=== PATIENT | female | born 1940 | race Caucasian/White ===

== ENCOUNTER 2018-12-18 16:27 | Inpatient (IN) | payer OTHER ==
[2018-12-17 19:40] VITALS: BP 141/70
[~2018-12-18] VITALS: Ht 162.6 cm; Wt 88.6 kg
--- NOTE | 2018-12-18 16:59 | PHYS DOC ---
Past History Past Medical History: COPD, Dementia Past Surgical History: No Surgical History Alcohol Use: None Drug Use: None Adult General Chief Complaint Chief Complaint: SHORTNESS OF BREATH [facility] HPI 78-year-old female presents from Dr. Evans's office with shortness of breath, UTI and concern for sepsis. The patient normally has a room air oxygen saturation of 90 or 91. She should be on 2 L of oxygen, but has not been for a long time. Today the patient had oxygen saturations in the 80s as low as 86. She went to Dr. Evans's office and was also found to be tachycardic. The patient was diagnosed 2 days ago with UTI and placed on Macrobid. She's had a total of 3 doses. With this, patient symptoms, he advised she come to the emergency room. On arrival, the patient was requiring 3 L of oxygen to maintain a saturation of 92%. She denies abdominal pain. She has general fatigue with her shortness of breath. She denies cough. She had a low-grade fever at home. Review of Systems Review of Systems Constitutional: Denies fever or chills [] Eyes: Denies change in visual acuity, redness, or eye pain [] HENT: Denies nasal congestion or sore throat [] Respiratory: shortness of breath [] Cardiovascular: No additional information not addressed in HPI [] GI: Denies abdominal pain, nausea, vomiting, bloody stools or diarrhea [] : Recent UTI diagnosis[] Musculoskeletal: Denies back pain or joint pain [] Integument: Denies rash or skin lesions [] Neurologic: Denies headache, focal weakness or sensory changes [] Endocrine: Denies polyuria or polydipsia [] All other systems were reviewed and found to be within normal limits, except as documented in this note. Allergies Allergies Allergies Coded Allergies Type Severity Reaction Last Updated Verified Penicillins Allergy Unknown 12/18/18 Yes Sulfa (Sulfonamide Antibiotics) Allergy Unknown 12/18/18 Yes bacitracin Allergy Unknown 12/18/18 Yes ciprofloxacin Allergy Unknown 12/18/18 Yes Physical Exam Physical Exam Constitutional: Well developed, well nourished, no acute distress, non-toxic appearance. [] HENT: Normocephalic, atraumatic, bilateral external ears normal, oropharynx moist, no oral exudates, nose normal. [] Eyes: PERRLA, EOMI, conjunctiva normal, no discharge. [] Neck: Normal range of motion, no tenderness, supple, no stridor. [] Cardiovascular:Heart rate regular rhythm, no murmur [] Lungs & Thorax: Bilateral breath sounds decreased but clear to auscultation [] Abdomen: Bowel sounds normal, soft, no tenderness, no masses, no pulsatile masses. [] Skin: Warm, dry, no erythema, no rash. [] Back: No tenderness, no CVA tenderness. [] Extremities: No tenderness, no cyanosis, no clubbing, ROM intact, no edema. [] Neurologic: Alert and oriented X 3, normal motor function, normal sensory function, no focal deficits noted. [] Psychologic: Affect normal, judgement normal, mood normal. [] Current Patient Data Vital Signs Vital Signs Date Time Temp Pulse Resp B/P (MAP) Pulse Ox O2 Delivery O2 Flow Rate FiO2 12/18/18 16:42 99.4 103 24 87 Room Air EKG EKG [] Radiology/Procedures Radiology/Procedures [] Impressions: CHEST PA LATERAL Clinical indications: Shortness of breath. COMPARISON: None available. Findings: Hyperinflation is seen consistent with COPD. Mild interstitial lung disease is seen and may be acute or chronic in nature. No lung consolidation or lung mass or pleural effusion or pneumothorax is evident otherwise. The heart size is at the upper limits of normal. The mediastinum and pulmonary vasculature and both josie are unremarkable. IMPRESSION: COPD. Mild interstitial lung disease may be acute or chronic in nature. No consolidative pneumonia is evident. Electronically signed by: Abdoulaye Jorgensen MD (12/18/2018 5:07 PM) [place] [id number] DICTATED AND SIGNED BY: ABDOULAYE JORGENSEN MD DATE: 12/18/18 [id number] CC: KAYLIE MORENO DO ~ Course & Med Decision Making Course & Med Decision Making Pertinent Labs and Imaging studies reviewed. (See chart for details) The patient's initial presentation has her oxygen saturation below 90%, heart rate of 102, not hypotensive. The patient has a known source of infection. The she meets sepsis criteria. We will give her 30 mL/kg of fluids as well as Rocephin. Labs are pending. Sepsis reassessment: The patient's fluids have improved her heart rate to below 100, her blood pressure is normal, her O2 is 95% on 3 L. I spoke with Dr. Evans and he has agreed to admit the patient to this facility. 31 minutes of critical care time was spent on this patient exclusive of other billable procedures. [] Dragon Disclaimer Dragon Disclaimer This electronic medical record was generated, in whole or in part, using a voice recognition dictation system. Date and Time of Assessment Date: Dec 18, 2018 Time: 16:30 Vital Signs Vital Signs Vital Signs Date Time Temp Pulse Resp B/P (MAP) Pulse Ox O2 Delivery O2 Flow Rate FiO2 12/18/18 16:42 99.4 103 24 87 Room Air Respirations Respiratory Effort: Shortness of air Respiratory Pattern: Normal Cardiovascular Pulse Rhythm: Regular HEART: No murmurs noted Lung Sounds Breath Sounds: Diminished Capillary Refill Capillary Refill: Rt Hand < 3 seconds Peripheral Pulse Pulse Location: Monitor Pulse Strength: Normal (2+) Pulse Assessment Method: Monitor Integumentary Skin: Warm Skin Moisture: Dry Skin Turgor: Normal Skin Color: warm Fingernail Color: KAYLIE GARCIA DO Dec 18, 2018 16:59
[2018-12-18] MEDS ORDERED: cefTRIAXone SODIUM 1 GM VIAL ONE (17:04)
[2018-12-18] MEDS ORDERED: IV NORMAL SALINE 50ML 50 ML ONE (17:04)
--- NOTE | 2018-12-18 17:11 | RAD ---
CHEST PA LATERAL Clinical indications: Shortness of breath. COMPARISON: None available. Findings: Hyperinflation is seen consistent with COPD. Mild interstitial lung disease is seen and may be acute or chronic in nature. No lung consolidation or lung mass or pleural effusion or pneumothorax is evident otherwise. The heart size is at the upper limits of normal. The mediastinum and pulmonary vasculature and both josie are unremarkable. IMPRESSION: COPD. Mild interstitial lung disease may be acute or chronic in nature. No consolidative pneumonia is evident. Electronically signed by: Myles Jorgensen MD (12/18/2018 5:07 PM) [place] [id number]
[2018-12-18] MEDS: NORMAL SALINE IV SCH ×4 (17:19→21:17)
[2018-12-18 17:55] LABS: BASO # 0.2 x10^3/uL (0.0-0.2); BASO % 1 % (0-3); EOS % 0 % (0-3); HEMATOCRIT 41.2 % (36.0-47.0); HEMOGLOBIN 13.5 g/dL (12.0-15.5); LYMPH # 1.6 x10^3/uL (1.0-4.8); LYMPH % 9 % (24-48); MEAN CORPUSCULAR HEMOGLOBIN 30 pg (25-35); MEAN CORPUSCULAR HGB CONC 33 g/dL (31-37); MEAN CORPUSCULAR VOLUME 91 fL (79-100); MONO # 1.2 x10^3/uL (0.0-1.1); MONO % 7 % (0-9); NEUT # 15.4 x10^3uL (1.8-7.7); NEUT % 84 % (31-73); PLATELET COUNT 279 x10^3/uL (140-400); RED BLOOD COUNT 4.55 x10^6/uL (3.50-5.40); RED CELL DISTRIBUTION WIDTH 13.7 % (11.5-14.5); WHITE BLOOD COUNT 18.3 x10^3/uL (4.0-11.0)
[2018-12-18 18:06] LABS: ALBUMIN 3.6 g/dL (3.4-5.0); CALCIUM 8.9 mg/dL (8.5-10.1); GFR 53.9; POTASSIUM 3.8 mmol/L (3.5-5.1); TOTAL BILIRUBIN 0.8 mg/dL (0.2-1.0); TOTAL PROTEIN 7.1 g/dL (6.4-8.2)
[2018-12-18] MEDS ORDERED: KETOROLAC 15 MG/ML VIAL. IV ONE (18:15)
[2018-12-18 18:54] LABS: BILIRUBIN,URINE SMALL (NEG); CLARITY,URINE HAZY; COLOR,URINE AMBER; GLUCOSE,URINE NEG (NEG); NITRITE,URINE NEG (NEG); UROBILINOGEN,URINE 0.2 mg/dL (0.2 mg/dL)
[2018-12-18 18:55] LABS: BACTERIA,URINE FEW /HPF (0-FEW); RBC,URINE OCC /HPF (0-2); SQUAMOUS EPITHELIAL CELL,UR MOD /LPF
[2018-12-18 19:00] VITALS: BP 141/70
[2018-12-18 19:20] LABS: % BANDS 2 % (0-9); % EOS 1 % (0-5); % LYMPHS 9 % (24-48); % MONOS 7 % (0-10); % SEGS 81 % (35-66); PLT ESTIMATE ADEQUATE (ADEQUATE)
[2018-12-18 19:21] LABS: ANISOCYTOSIS SLIGHT
[2018-12-18] MEDS ORDERED: IPRATRPIUM/ALBUTEROL 0.5/2.5MG 3 ML NEBU. NEB SCH (20:00)
[2018-12-18] MEDS ORDERED: QUET100T4 PO (20:44)
[2018-12-18] MEDS ORDERED: OMEG100021 PO (20:44)
[2018-12-18] MEDS ORDERED: MULT1TAB52 PO (20:44)
[2018-12-18] MEDS ORDERED: LAMO200T2 PO (20:44)
[2018-12-18] MEDS ORDERED: BISA5TAB4 PO (20:44)
[2018-12-18] MEDS ORDERED: BISACODYL TAB 5 MG TABLET.DR. PO PRN (21:15)
[2018-12-18] MEDS ORDERED: ASPI-630 PO (21:51)
[2018-12-18] MEDS ORDERED: LISI40TA PO (21:51)
[2018-12-18] MEDS ORDERED: FURO20TA3 PO (21:51)
[2018-12-18] MEDS ORDERED: FLUT1DIS IH (21:51)
[2018-12-18] MEDS ORDERED: LORA0.5T PO (21:51)
[2018-12-18] MEDS ORDERED: TRAM50TA PO (21:51)
[2018-12-18] MEDS ORDERED: IPRA4AER INH (21:51)
[2018-12-18] MEDS ORDERED: B CO1CAP6 PO (21:51)
[2018-12-18] MEDS ORDERED: DESV100T PO (21:51)
[2018-12-18] MEDS ORDERED: BENZ-8 PO (21:51)
[2018-12-18] MEDS ORDERED: CYCL5TAB PO (21:51)
[2018-12-18] MEDS ORDERED: CYCLOBENZAPRINE 10 MG TABLET. PO PRN (22:15)
[2018-12-18] MEDS ORDERED: LORazepam 0.5 MG TABLET PO PRN (22:30)
[2018-12-18] MEDS: OMEGA-3 FATTY ACIDS/FISH OIL 1,000 MG CAPSULE. PO SCH (22:56)
[2018-12-18] MEDS: QUEtiapine 100 MG TABLET. PO SCH (23:00)
[2018-12-18] MEDS: traMADol 50 MG TABLET PO PRN (23:00)
[2018-12-18] MEDS: MULTIVITAMIN with MINERAL TABLET. PO SCH (23:00)
[2018-12-18] MEDS: IV NORMAL SALINE 1,000ML 1,000 ML IV SCH (23:01)
[2018-12-18] MEDS: lamoTRIgine 100 MG TABLET. PO SCH (23:01)
[2018-12-19] MEDS: KETOROLAC 30 MG/ML VIAL. IV PRN ×3 (00:20→20:57)
[2018-12-19] MEDS: BUDESONIDE 0.5 MG/2 ML NEBU NEB SCH ×2 (05:43→20:50)
[2018-12-19] MEDS: IPRATRPIUM/ALBUTEROL 0.5/2.5MG 3 ML NEBU. NEB SCH ×4 (05:43→20:50)
[2018-12-19 06:15] VITALS: BP 125/68
[2018-12-19] MEDS: ASPIRIN 81 MG TAB.CHEW PO SCH (08:51)
[2018-12-19] MEDS: VITAMIN B COMPLEX CAPSULE. PO SCH (08:51)
[2018-12-19] MEDS: OMEGA-3 FATTY ACIDS/FISH OIL 1,000 MG CAPSULE. PO SCH ×2 (08:52→20:56)
[2018-12-19] MEDS: FUROSEMIDE 20 MG TABLET PO SCH (08:52)
[2018-12-19] MEDS: DESVENLAFAXINE 100 MG PO SCH (08:52)
[2018-12-19] MEDS: LISINOPRIL 20 MG TABLET PO SCH (08:53)
[2018-12-19] MEDS ORDERED: NON FORMULARY ITEM (Ipratropium/Albuterol Sulfate (Combivent Respimat Inhal) 1 PUFF) INH SCH (09:00)
[2018-12-19] MEDS ORDERED: BENZONATATE 100 MG CAPSULE. PO PRN (09:00)
[2018-12-19] MEDS ORDERED: NON FORMULARY ITEM (Fluticasone/Salmeterol (Advair 100-50 Diskus) 1 EACH) IH SCH (09:00)
[2018-12-19 11:10] VITALS: BP 133/59
[2018-12-19 11:11] LABS: BASO # 0.1 x10^3/uL (0.0-0.2); BASO % 1 % (0-3); EOS # 0.1 x10^3/uL (0.0-0.7); EOS % 1 % (0-3); HEMATOCRIT 35.5 % (36.0-47.0); HEMOGLOBIN 11.7 g/dL (12.0-15.5); LYMPH # 2.5 x10^3/uL (1.0-4.8); LYMPH % 17 % (24-48); MEAN CORPUSCULAR HEMOGLOBIN 30 pg (25-35); MEAN CORPUSCULAR HGB CONC 33 g/dL (31-37); MEAN CORPUSCULAR VOLUME 90 fL (79-100); MONO # 1.1 x10^3/uL (0.0-1.1); MONO % 8 % (0-9); NEUT # 10.9 x10^3uL (1.8-7.7); NEUT % 74 % (31-73); PLATELET COUNT 222 x10^3/uL (140-400); RED BLOOD COUNT 3.93 x10^6/uL (3.50-5.40); RED CELL DISTRIBUTION WIDTH 13.5 % (11.5-14.5); WHITE BLOOD COUNT 14.7 x10^3/uL (4.0-11.0)
[2018-12-19 11:13] LABS: CALCIUM 7.7 mg/dL (8.5-10.1); CREATININE 0.9 mg/dL (0.6-1.0); GFR 60.9; POTASSIUM 3.6 mmol/L (3.5-5.1)
[2018-12-19] MEDS ORDERED: IOHEXOL 350 MG/ML 100 ML VIAL. IV ONE (15:00)
[2018-12-19 15:30] VITALS: BP 134/64
--- NOTE | 2018-12-19 15:55 | RAD ---
CTA Chest with contrast: Clinical History: Dyspnea and elevated d-dimer and fatigue and low-grade fever. Axial helical images of the chest were obtained after the administration of 100 cc of IV Isovue-370 and timed appropriately for a pulmonary arterial study. Conventional axial reconstruction was performed in addition to coronal, sagittal and bilateral oblique MIP (maximum intensity projection). This study was ordered to detect possible pulmonary embolism. There are no filling defects to suggest pulmonary embolism. There is patchy opacities in the lung bases posteriorly. There is vague patchy opacity in the right upper lobe posterior laterally and there is diffuse emphysematous changes. There is consultation the wall of the thoracic aorta without dissection. The ascending thoracic aorta is mildly dilated to 4.1 cm. There is coronary artery calcifications. There is no lymphadenopathy. Impression: 1. No evidence of pulmonary embolism. 2. Bilateral infiltrates could be atypical pneumonia. 3. Atherosclerotic disease with mildly dilated ascending thoracic aorta. RS Compliance Statement: One or more of the following individualized dose reduction techniques were utilized for this examination: 1. Automated exposure control 2. Adjustment of the mA and/or kV according to patient size 3. Use of iterative reconstruction technique Electronically signed by: Demond Gonzalez III, MD (12/19/2018 3:52 PM) [facility] [place]
[2018-12-19] MEDS: traMADol 50 MG TABLET PO PRN (19:22)
[2018-12-19 19:30] VITALS: BP 133/73
[2018-12-19] MEDS: MULTIVITAMIN with MINERAL TABLET. PO SCH (20:56)
[2018-12-19] MEDS: lamoTRIgine 100 MG TABLET. PO SCH (20:56)
[2018-12-19] MEDS: LACTOBACILLUS RHAMNOSUS GG 1 CAPSULE. PO SCH (20:56)
[2018-12-19] MEDS: QUEtiapine 100 MG TABLET. PO SCH (20:56)
[2018-12-19] MEDS: IV NORMAL SALINE 1,000ML 1,000 ML IV SCH ×2 (20:58→22:03)
[2018-12-19 22:39] VITALS: BP 112/53
--- NOTE | 2018-12-20 03:15 | PN ---
DATE: 12/19/2018 SUBJECTIVE: A 78-year-old female in with shortness of breath as well as possible sepsis. The patient's white count has been as high as 18,000 and the patient, although had a negative lactic acid she did have an elevated pulse rate. The patient otherwise seems to be breathing a little bit easier this morning. She was basically hypoxic yesterday and has some chronic lung disease as well as depression and dementia. Otherwise, the patient says she is feeling a little better. OBJECTIVE: VITAL SIGNS: Blood pressure 130/60, respiratory rate ____, pulse 96, afebrile. HEENT: The patient's head was atraumatic, normocephalic. Eyes: PERRLA without jaundice. Mouth and throat were normal. NECK: Supple, no JVD or thyromegaly. LUNGS: Diminished throughout, poor movement of air, but clear. CARDIOVASCULAR: Regular sinus rhythm. Blood pressure 140/70, respiration 18, pulse 98. Initial temperature was 102.9, but has come down to 98.3, so we will go ahead and continue to monitor the patient accordingly and make further evaluation. IMPRESSION: Sepsis, acute respiratory distress, sinus tachycardia, hypoxia. PLAN: As above. Continue with aggressive pulmonary toilet. Make further evaluation on her as indicated. MAYTE SILVERMAN MD DR: BECKA/brijesh JOB#: [id number] / [id number]
[2018-12-20] MEDS: IPRATRPIUM/ALBUTEROL 0.5/2.5MG 3 ML NEBU. NEB SCH ×4 (05:03→20:19)
[2018-12-20 05:47] VITALS: BP 134/66
[2018-12-20 07:03] LABS: BASO # 0.1 x10^3/uL (0.0-0.2); BASO % 1 % (0-3); EOS # 0.3 x10^3/uL (0.0-0.7); EOS % 3 % (0-3); HEMOGLOBIN 11.5 g/dL (12.0-15.5); LYMPH # 2.2 x10^3/uL (1.0-4.8); LYMPH % 19 % (24-48); MEAN CORPUSCULAR HEMOGLOBIN 30 pg (25-35); MEAN CORPUSCULAR HGB CONC 33 g/dL (31-37); MEAN CORPUSCULAR VOLUME 92 fL (79-100); MONO # 1.1 x10^3/uL (0.0-1.1); MONO % 9 % (0-9); NEUT # 8.3 x10^3uL (1.8-7.7); NEUT % 69 % (31-73); PLATELET COUNT 221 x10^3/uL (140-400); RED BLOOD COUNT 3.82 x10^6/uL (3.50-5.40); RED CELL DISTRIBUTION WIDTH 13.6 % (11.5-14.5); WHITE BLOOD COUNT 11.9 x10^3/uL (4.0-11.0)
[2018-12-20 07:06] LABS: CALCIUM 7.7 mg/dL (8.5-10.1); CREATININE 0.8 mg/dL (0.6-1.0); GFR 69.7; POTASSIUM 3.6 mmol/L (3.5-5.1)
[2018-12-20] MEDS: ASPIRIN 81 MG TAB.CHEW PO SCH (07:43)
[2018-12-20] MEDS: VITAMIN B COMPLEX CAPSULE. PO SCH (08:36)
[2018-12-20] MEDS: OMEGA-3 FATTY ACIDS/FISH OIL 1,000 MG CAPSULE. PO SCH ×2 (08:36→21:10)
[2018-12-20] MEDS: FUROSEMIDE 20 MG TABLET PO SCH (08:36)
[2018-12-20] MEDS: LACTOBACILLUS RHAMNOSUS GG 1 CAPSULE. PO SCH ×2 (08:36→21:09)
[2018-12-20] MEDS: DESVENLAFAXINE 100 MG PO SCH (08:37)
[2018-12-20] MEDS: LISINOPRIL 20 MG TABLET PO SCH (08:37)
[2018-12-20] MEDS: BUDESONIDE 0.5 MG/2 ML NEBU NEB SCH ×2 (09:35→20:19)
[2018-12-20] MEDS: IV NORMAL SALINE 1,000ML 1,000 ML IV SCH ×2 (11:01→22:53)
[2018-12-20 11:55] VITALS: BP 140/67
[2018-12-20 15:17] VITALS: BP 149/74
[2018-12-20] MEDS: AZITHROMYCIN 250 MG TABLET. PO SCH (18:41)
[2018-12-20 20:10] VITALS: BP 167/72
[2018-12-20] MEDS: MULTIVITAMIN with MINERAL TABLET. PO SCH (21:09)
[2018-12-20] MEDS: QUEtiapine 100 MG TABLET. PO SCH (21:09)
[2018-12-20] MEDS: lamoTRIgine 100 MG TABLET. PO SCH (21:10)
[2018-12-20 23:00] VITALS: BP 178/80
[2018-12-21] MEDS: IPRATRPIUM/ALBUTEROL 0.5/2.5MG 3 ML NEBU. NEB SCH (04:56)
[2018-12-21 06:00] VITALS: BP 132/60
[2018-12-21] MEDS: BUDESONIDE 0.5 MG/2 ML NEBU NEB SCH (07:48)
[2018-12-21] MEDS: DESVENLAFAXINE 100 MG PO SCH (07:49)
[2018-12-21] MEDS: LACTOBACILLUS RHAMNOSUS GG 1 CAPSULE. PO SCH (07:49)
[2018-12-21] MEDS: LISINOPRIL 20 MG TABLET PO SCH (07:49)
[2018-12-21] MEDS: ASPIRIN 81 MG TAB.CHEW PO SCH (07:49)
[2018-12-21] MEDS: AZITHROMYCIN 250 MG TABLET. PO SCH (07:50)
[2018-12-21] MEDS: FUROSEMIDE 20 MG TABLET PO SCH (07:50)
[2018-12-21] MEDS: OMEGA-3 FATTY ACIDS/FISH OIL 1,000 MG CAPSULE. PO SCH (07:50)
[2018-12-21] MEDS: VITAMIN B COMPLEX CAPSULE. PO SCH (07:50)
[2018-12-21 09:35] VITALS: BP 162/80
[2018-12-21] MEDS ORDERED: AZIT250T6 PO (10:07)
[2018-12-21] MEDS ORDERED: IPRA3AMP29 NEB (10:07)
--- NOTE | 2018-12-21 13:58 | PN ---
DATE: SUBJECTIVE: The patient is a 78-year-old female with acute exacerbation of COPD, possible pneumonia of unspecified etiology. She is resting fairly comfortably, making fairly good progress. White count is coming down gradually. She is still having a little bit of a temperature rise towards the evening hours and we will probably add a second dose antibiotic to that. OBJECTIVE: GENERAL: Otherwise, the patient is alert and oriented. VITAL SIGNS: Blood pressure 150/70, respiratory rate 24, pulse 93, temperature 99.6, 2 liters at 98. LUNGS: Otherwise lungs are diminished throughout, but clear. CARDIOVASCULAR: Regular sinus rhythm. ABDOMEN: Soft, nontender. IMPRESSION: Pneumonia of unspecified etiology, community acquired SIRS as well as acute exacerbation of chronic obstructive pulmonary disease with a respiratory tract infection and hypoxia. MAYTE SILVERMAN MD DR: BECKA/brijesh JOB#: [id number] / [id number]
--- NOTE | 2019-01-06 11:53 | DS ---
DATE OF DISCHARGE: 12/21/2018 DISCHARGE SUMMARY HOSPITAL COURSE: A 78-year-old female came in with pneumonia, SIRS, having difficulty breathing. The patient's white count was elevated. Overall, the patient made fairly good progress with IV antibiotic therapy. Temperature came down. White count came down. The patient was discharged home. See MRAD. The patient has pneumonia of unspecified etiology, community acquired, SIRS secondary to pneumonia, acute exacerbation of chronic obstructive pulmonary disease with a respiratory tract infection and hypoxia, essential hypertension. The patient will be discharged home. See MRAD and return to clinic in 7-10 days. Decreased activity. MAYTE SILVERMAN MD DR: BECKA/brijesh JOB#: [id number] / [id number]
== END 2018-12-21 10:36 | disposition home health service (06) | DRG 871 ==
LOC: ER 16:27 → ICU 18:21
PROVIDERS: ADMIT Family Medicine; ATTEND Family Medicine
DX: A41.9 Sepsis, unspecified organism (principal); J18.9 Pneumonia, unspecified organism; J96.01 Acute respiratory failure with hypoxia; N39.0 Urinary tract infection, site not specified; J44.0 Chronic obstructive pulmonary disease with (acute) lower respiratory infection; J44.1 Chronic obstructive pulmonary disease with (acute) exacerbation; F32.9 Major depressive disorder, single episode, unspecified; F17.210 Nicotine dependence, cigarettes, uncomplicated; F03.90 Unspecified dementia, unspecified severity, without behavioral disturbance, psychotic disturbance, mood disturbance, and anxiety; Z88.1 Allergy status to other antibiotic agents; Z88.0 Allergy status to penicillin; Z88.2 Allergy status to sulfonamides; Z82.3 Family history of stroke
CPT/HCPCS: 36415; 71046; 71275; 80048; 80053; 81001; 83605; 84145; 85007; 85025; 85379; 86738; 87040; 87086; 87641; 94640; 96361; 96374; J0456; J0696; J1885; J7620; J7626; Q9967; 97116; 99291-25; J7030

== ENCOUNTER 2018-12-28 22:00 | Emergency (ER) | payer OTHER ==
[~2018-12-28] VITALS: Ht 167.6 cm; Wt 85.7 kg
[~2018-12-28 22:00] MED LIST: ASPI-630 PO; AZIT250T6 PO; B CO1CAP6 PO; BENZ-8 PO; BISA5TAB4 PO; CYCL5TAB PO; DESV100T PO; FLUT1DIS IH; FURO20TA3 PO; IPRA3AMP29 NEB; IPRA4AER INH; LAMO200T2 PO; LISI40TA PO; LORA0.5T PO; MULT1TAB52 PO; OMEG100021 PO; QUET100T4 PO; TRAM50TA PO
[2018-12-28] MEDS ORDERED: KETOROLAC 15 MG/ML VIAL. IM ONE (22:45)
--- NOTE | 2018-12-28 22:56 | PHYS DOC ---
Past History Past Medical History: COPD, Dementia Past Surgical History: No Surgical History Alcohol Use: None Drug Use: None Adult General Chief Complaint Chief Complaint: MECHANICAL FALL HPI HPI Patient is a 80-year-old female who presents after a mechanical fall. She states she was at the foot of her bed and went to take a step and tripped on a shoe on the floor fell forward and hit her face on a cabinet drawer. She then fell to the ground and struck her right knee and right elbow as well. She denies any loss of consciousness associated with the fall her pain initially was 5 out of 10 and has stayed constant. She also states there was significant swelling of her face immediately after the fall, which has decreased markedly at this point. She currently has a headache that she rates as a 3 or 4 out of 10 in severity. She denies any dizziness or lightheadedness at the time of the fall or currently. She states the pain is worse in her knee. She has not taken any medication for the pain. She denies any nausea or vomiting. Reports history of ASA use. Review of Systems Review of Systems Constitutional: Denies fever or chills Eyes: Denies redness but has right lateral orbit bruising and tenderness. HENT: Denies nasal congestion or sore throat Respiratory: Denies cough or shortness of breath Cardiovascular: Denies chest pain or palpitations GI: Denies abdominal pain, nausea, or vomiting : Denies dysuria or hematuria Musculoskeletal: Reports right knee and right elbow pain. Integument: Ecchymosis over right knee, right elbow, and right frontal bone. Neurologic: Reports mild headache, denies focal weakness or sensory changes Complete systems were reviewed and found to be within normal limits, except as documented in this note. Current Medications Current Medications Current Medications Medications (Trade) Dose Ordered Sig/Benjamin Start Time Stop Time Status Last Admin Dose Admin Ketorolac Tromethamine (Toradol 15mg Vial) 15 mg 1X ONCE 12/28/18 22:45 12/28/18 22:46 DC Allergies Allergies Allergies Coded Allergies Type Severity Reaction Last Updated Verified Penicillins Allergy Intermediate 12/19/18 Yes Sulfa (Sulfonamide Antibiotics) Allergy Intermediate 12/19/18 Yes bacitracin Allergy Intermediate 12/19/18 Yes ciprofloxacin Allergy Intermediate 12/19/18 Yes Physical Exam Physical Exam Constitutional: Well developed, well nourished, no acute distress, non-toxic appearance HENT: Normocephalic, oropharynx moist. Bruising/tenderness over right eyebrow Eyes: PERRL, EOMI, conjunctiva normal, no discharge Neck: Normal range of motion, no midline tenderness, supple Cardiovascular: Heart rate normal, regular rhythm Lungs & Thorax: Bilateral breath sounds clear to auscultation, no wheezing Abdomen: Soft, no tenderness, pelvis stable and nontender Skin: Ecchymosis of right knee, healing ecchymosis note anterior right elbow from prior fall Back: No tenderness, no CVA tenderness Extremities: Tenderness to palpation and swelling of right knee with associated ecchymosis Neurologic: Alert and oriented X 3, normal motor function, normal sensory function, no focal deficits noted Psychologic: Affect normal, judgement normal, mood normal EKG EKG [] Radiology/Procedures Radiology/Procedures PROCEDURE: CT HEAD AND CERVICAL SPINE WO CT brain without contrast, CT cervical spine without contrast. HISTORY: Headache, neck pain, fall CT brain CT scan of brain was done without contrast. Sinuses are clear. Mastoids are normally aerated. There is no skull fracture. There is mild atrophy. There is no intracranial hemorrhage or subdural hematoma. Ventricles are normal in size. There is no mass or shift of the midline. There is decreased density in the periventricular white matter. IMPRESSION: 1. Atrophy and chronic white matter changes. 2. No intracranial hemorrhage or mass or acute finding noted. End impression CT cervical spine Axial CT images were obtained to the cervical spine. Sagittal and coronal reconstructed images were reviewed. There is mild apical scarring in the lungs. There are bilateral thyroid nodules. There is mild carotid artery calcification. There is no acute C-spine fracture. There is marked degenerative disc disease at C5-6 and C6-7. There is mild anterior subluxation of C4 relative to C5 without an acute fracture. Odontoid is intact. There is mild scoliosis. IMPRESSION: 1. Degenerative changes in the cervical spine. 2. No acute fracture. 3. Bilateral thyroid nodules. Electronically signed by: Avila Anglin MD (12/28/2018 11:05 PM) [facility] PROCEDURE: KNEE RIGHT 3V Right knee 3 views. HISTORY: Right knee pain after fall 3 views were taken of the right knee. There is mild chondrocalcinosis. There is vascular calcification. There is no fracture or joint effusion or acute osseous abnormality. IMPRESSION: 1. No fracture or acute osseous abnormality noted in the right knee. Electronically signed by: Avila Anglin MD (12/28/2018 10:59 PM) [facility] Course & Med Decision Making Course & Med Decision Making Patient is a 78-year-old female who presents after a mechanical fall in which she hit her face on a cabinet and then her right knee on the ground. She denies any loss of consciousness and neurologic exam was completely normal. Patient's pain was controlled with Toradol 15mg IM. CT scan of the head and neck demonstrated no acute fractures or bleeds. X-ray of the right knee failed to demonstrate any acute fractures. Education on RICE therapy provided. LEV bandage provided to right knee. Patient stable for discharge with outpatient follow-up with PCP. Discussed findings and plan with patient and family, who acknowledge understanding and agreement. Dragon Disclaimer Dragon Disclaimer This electronic medical record was generated, in whole or in part, using a voice recognition dictation system. Splinting Splinting : Location: Right knee Pre-Made Type: LEV bandage Pre-Proc Neuro Vasc Exam: normal Post-Proc Neuro Vasc Exam: normal, unchanged from pre-exam Departure Departure: Impression: Primary Impression: Fall Additional Impression: Knee contusion Disposition: 01 HOME, SELF-CARE Condition: STABLE Referrals: MAYTE SILVERMAN MD (PCP) Patient Instructions: Contusion, [id number], Fall Prevention and Home Safety, [id number] Additional Instructions: Use over the counter Tylenol or Ibuprofen for pain Problem Qualifiers Primary Impression: Fall Encounter type: initial encounter Qualified Codes: W19.XXXA - Unspecified fall, initial encounter Additional Impression: Knee contusion Encounter type: initial encounter Laterality: right Qualified Codes: S80.01XA - Contusion of right knee, initial encounter GLORIA PAREKH DO Dec 28, 2018 22:56
[2018-12-28 23:00] VITALS: BP 132/73
--- NOTE | 2018-12-28 23:02 | RAD ---
Right knee 3 views. HISTORY: Right knee pain after fall 3 views were taken of the right knee. There is mild chondrocalcinosis. There is vascular calcification. There is no fracture or joint effusion or acute osseous abnormality. IMPRESSION: 1. No fracture or acute osseous abnormality noted in the right knee. Electronically signed by: Avila Anglin MD (12/28/2018 10:59 PM) [facility]
--- NOTE | 2018-12-28 23:08 | RAD ---
CT brain without contrast, CT cervical spine without contrast. HISTORY: Headache, neck pain, fall CT brain CT scan of brain was done without contrast. Sinuses are clear. Mastoids are normally aerated. There is no skull fracture. There is mild atrophy. There is no intracranial hemorrhage or subdural hematoma. Ventricles are normal in size. There is no mass or shift of the midline. There is decreased density in the periventricular white matter. IMPRESSION: 1. Atrophy and chronic white matter changes. 2. No intracranial hemorrhage or mass or acute finding noted. End impression CT cervical spine Axial CT images were obtained to the cervical spine. Sagittal and coronal reconstructed images were reviewed. There is mild apical scarring in the lungs. There are bilateral thyroid nodules. There is mild carotid artery calcification. There is no acute C-spine fracture. There is marked degenerative disc disease at C5-6 and C6-7. There is mild anterior subluxation of C4 relative to C5 without an acute fracture. Odontoid is intact. There is mild scoliosis. IMPRESSION: 1. Degenerative changes in the cervical spine. 2. No acute fracture. 3. Bilateral thyroid nodules. Electronically signed by: Avila Anglin MD (12/28/2018 11:05 PM) [facility]
== END 2018-12-28 23:18 | disposition home or self-care (01) ==
LOC: ER 22:00
DX: S80.01XA Contusion of right knee, initial encounter (principal); R51 Headache; M54.2 Cervicalgia; R22.0 Localized swelling, mass and lump, head; M25.521 Pain in right elbow; Z88.0 Allergy status to penicillin; Z88.2 Allergy status to sulfonamides; Z88.1 Allergy status to other antibiotic agents; W18.09XA Striking against other object with subsequent fall, initial encounter; Y93.89 Activity, other specified; Y92.89 Other specified places as the place of occurrence of the external cause; Y99.8 Other external cause status
CPT/HCPCS: 70450; 72125; 73562; 96372; 99284; J1885

== ENCOUNTER 2019-01-16 22:13 | Observation (INO) | payer OTHER ==
[~2019-01-16] VITALS: Ht 165.1 cm; Wt 85.4 kg
--- NOTE | 2019-01-16 22:18 | ED.ADGEN ---
Past History Past Medical History: Arthritis, COPD, Dementia, DVT, Hypertension, IBS, Other Past Surgical History: No Surgical History Alcohol Use: None Drug Use: None Adult General Chief Complaint Chief Complaint ". I was getting up to get something out my heri drawers... and yuli got my feet tangled up.. .and tripped.. and fell hitting my head on the bed frame... that was about 2 hrs. ago... I told them I did not need to come.... in..... that I was fine.. but they sent me over any way...." HPI HPI Patient is a 78 year old female who presents with above hx and complaints of fal l. Pt. has fallen three times in past 24 hrs. Pt. refuses to use her walker. Pt. is resident of [facility] since 01/04/2019. Patient denies any changes in meds. Patient has history of chronic obstructive pulmonary disease and oxygen dependent at 2 L., bronchitis, hypertension, depression, dementia, hypoxia, anxiety disorder,. The patient is a poor historian reference events of her fall tonight. Patient did strike the back of her head on a metal bed with the fall tonight. Patient has small contusion to posterior scalp. Pt. follows with Dr. Silverman, Dr. Tyler, and Dr. Hatch in the past. Review of Systems Review of Systems Constitutional: Denies fever or chills [] Eyes: Denies change in visual acuity, redness, or eye pain [] HENT: Denies nasal congestion or sore throat []complaints of head contusion Respiratory: Denies cough or shortness of breath [] Cardiovascular: No additional information not addressed in HPI [] GI: Denies abdominal pain, nausea, vomiting, bloody stools or diarrhea [] : Denies dysuria or hematuria [] Musculoskeletal: Denies back pain or joint pain [] Integument: Denies rash or skin lesions [] Neurologic: Complains of mild headache, focal weakness or sensory changes [] Endocrine: Denies polyuria or polydipsia [] All other systems were reviewed and found to be within normal limits, except as documented in this note. Family History Family History All three of her daughters have had DVT and two PE- due factor deficiency??? All three had different fathers. Current Medications Current Medications Current Medications Medications (Trade) Dose Ordered Sig/Benjamin Start Time Stop Time Status Last Admin Dose Admin Acetaminophen (Tylenol) 650 mg PRN Q4HRS PRN 01/17/19 02:00 01/17/19 02:51 DC Albuterol/ Ipratropium (Duoneb) 3 ml RTQID 01/17/19 08:00 01/17/19 08:00 DC Cephalexin HCl (Keflex) 500 mg TID 01/17/19 09:00 01/17/19 09:00 DC Enoxaparin Sodium (Lovenox 80mg Syringe) 80 mg BID 01/17/19 09:00 01/17/19 09:00 DC Lactated Ringer's 1,000 ml @ 500 mls/hr 1X ONCE 01/17/19 01:45 01/17/19 02:51 DC 01/17/19 02:12 500 MLS/HR Ondansetron HCl (Zofran) 4 mg PRN Q4HRS PRN 01/17/19 02:00 01/17/19 02:51 DC Allergies Allergies Allergies Coded Allergies Type Severity Reaction Last Updated Verified Penicillins Allergy Intermediate 12/19/18 Yes Sulfa (Sulfonamide Antibiotics) Allergy Intermediate 12/19/18 Yes bacitracin Allergy Intermediate 12/19/18 Yes ciprofloxacin Allergy Intermediate 12/19/18 Yes Physical Exam Physical Exam Constitutional: Moderately acute distress, non-toxic appearance. [] HENT: Normocephalic, contusion posterior scalp, bilateral external ears normal, oropharynx moist, no oral exudates, nose normal. [] Eyes: PERRLA, EOMI, conjunctiva normal, no discharge. [] Neck: Normal range of motion, mild paracervical tenderness, supple, no stridor. [] Cardiovascular:Heart rate regular rhythm, no murmur []PMI to the left Lungs & Thorax: Bilateral breath sounds equal apexes scattered wheezes on auscultation [] Abdomen: Bowel sounds normal, soft, no tenderness, no masses, no pulsatile masses. [] Skin: Warm, dry, no erythema, no rash. [] Poor turgor Back: No tenderness, no CVA tenderness. [] Extremities: No tenderness, no cyanosis, no clubbing, ROM intact, no edema. [] Arthritic changes Neurologic: Alert and oriented X 3, moves all extremities on request. Does have distal sensory., no gross focal deficits noted per patient and daughter Psychologic: Affect anxious, obvious some limitation in memory, mood normal. [] Current Patient Data Vital Signs Vital Signs Date Time Temp Pulse Resp B/P (MAP) Pulse Ox O2 Delivery O2 Flow Rate FiO2 01/16/19 22:35 97.5 80 20 143/71 (95) 95 Nasal Cannula 2.0 Lab Results Laboratory Tests Test 01/16/19 22:40 01/17/19 00:20 White Blood Count 8.5 x10^3/uL (4.0-11.0) Red Blood Count 3.89 x10^6/uL (3.50-5.40) Hemoglobin 11.8 g/dL (12.0-15.5) L Hematocrit 35.7 % (36.0-47.0) L Mean Corpuscular Volume 92 fL (79-100) Mean Corpuscular Hemoglobin 30 pg (25-35) Mean Corpuscular Hemoglobin Concent 33 g/dL (31-37) Red Cell Distribution Width 13.9 % (11.5-14.5) Platelet Count 230 x10^3/uL (140-400) Neutrophils (%) (Auto) 43 % (31-73) Lymphocytes (%) (Auto) 44 % (24-48) Monocytes (%) (Auto) 10 % (0-9) H Eosinophils (%) (Auto) 4 % (0-3) H Basophils (%) (Auto) 1 % (0-3) Neutrophils # (Auto) 3.6 x10^3uL (1.8-7.7) Lymphocytes # (Auto) 3.7 x10^3/uL (1.0-4.8) Monocytes # (Auto) 0.8 x10^3/uL (0.0-1.1) Eosinophils # (Auto) 0.3 x10^3/uL (0.0-0.7) Basophils # (Auto) 0.1 x10^3/uL (0.0-0.2) Prothrombin Time 9.9 SEC (9.4-11.4) Prothrombin Time INR 1.0 (0.9-1.1) PTT 27 SEC (23-33) D-Dimer (Maisha) 0.99 mg/L (0.00-0.50) H Sodium Level 140 mmol/L (136-145) Potassium Level 4.1 mmol/L (3.5-5.1) Chloride Level 101 mmol/L (98-107) Carbon Dioxide Level 30 mmol/L (21-32) Anion Gap 9 (6-14) Blood Urea Nitrogen 25 mg/dL (7-20) H Creatinine 1.6 mg/dL (0.6-1.0) H Estimated GFR (Cockcroft-Gault) 31.3 BUN/Creatinine Ratio 16 (6-20) Glucose Level 94 mg/dL (70-99) Calcium Level 8.5 mg/dL (8.5-10.1) Total Bilirubin 0.2 mg/dL (0.2-1.0) Aspartate Amino Transferase (AST) 18 U/L (15-37) Alanine Aminotransferase (ALT) 23 U/L (14-59) Alkaline Phosphatase 81 U/L (46-116) Troponin I Quantitative < 0.017 ng/mL (0-0.055) EN-Uop-E-Type Natriuretic Peptide 176 pg/mL (0-449) Total Protein 6.7 g/dL (6.4-8.2) Albumin 3.6 g/dL (3.4-5.0) Albumin/Globulin Ratio 1.2 (1.0-1.7) Urine Collection Type Unknown Urine Color Yellow Urine Clarity Cloudy Urine pH 5.0 Urine Specific [place] 1.015 Urine Protein Neg (NEG-TRACE) Urine Glucose (UA) Neg mg/dL (NEG) Urine Ketones (Stick) Neg mg/dL (NEG) Urine Blood Trace (NEG) Urine Nitrite Pos (NEG) Urine Bilirubin Neg (NEG) Urine Urobilinogen Dipstick 0.2 mg/dL (0.2 mg/dL) Urine Leukocyte Esterase Mod (NEG) Urine RBC 1-2 /HPF (0-2) Urine WBC 20-40 /HPF (0-4) Urine Squamous Epithelial Cells Many /LPF Urine Bacteria Many /HPF (0-FEW) Urine Mucus Slight /LPF EKG EKG My interpretation EKG shows a sinus rhythm with some mild left axis deviation. Does have anterior fascicular block. No findings acute STEMI with contralateral changes.[] Radiology/Procedures Radiology/Procedures Chest x-ray still pending at time of admission- reviewed old chest x-ray shows COPD changes. []STATUS: PRE ERORD. PHYSICIAN: KELSY ROLON MD REASON: Fall x 3 in the last 24 hrs. Head injury-hit back of head, pain. PROCEDURE: CT HEAD AND CERVICAL SPINE WO CT Head W/O Contrast: History: Fall x3, head injury Comparison: none Axial images were obtained without contrast. There is moderate diffuse atrophy. There is no mass effect, extraaxial fluid collections or hydrocephalus. There is no gross bleed. Moderate, diffuse periventricular and subcortical white matter hypoattenuation is seen. There is no focal loss of shahid-white matter distinction to suggest acute ischemia, i.e. stroke. Impression: No acute findings. End impression CT C-Spine without contrast: Clinical History: Pain status post fall Technique: Axial helical images of the cervical spine were obtained without contrast, axial coronal and sagittal reconstruction was performed. Findings: There is no loss of vertebral body stature. There is no prevertebral soft tissue swelling. There is mild degenerative anterolisthesis of C4 on C5. There is reversal of the normal cervical lordosis which can be positional or could be chronic. The C1-C2 relationship is normal. The visualized osseous structures appear normal. Evaluation of the central canal is limited without contrast. There is multiple posterior disc bulges resulting in flattening of the thecal sac. There does not appear to be gross flattening of the cervical cord. There is moderate narrowing of multiple neuroforamen. There is multiple thyroid nodules bilaterally. Impression: 1. Moderate degenerative changes. 2. Thyroid nodules bilaterally patient should follow-up correlation with TSH and ultrasound as an outpatient. 3. No acute findings. Clinical correlation suggested. PQRS Compliance Statement: One or more of the following individualized dose reduction techniques were utilized for this examination: 1. Automated exposure control 2. Adjustment of the mA and/or kV according to patient size 3. Use of iterative reconstruction technique Electronically signed by: Everardo Dukes III, MD (01/16/2019 11:35 PM) [facility] [place] DICTATED AND SIGNED BY: EVERARDO DUKES III, MD DATE: 01/16/19 [id number] CC: MAYTE SILVERMAN MD; KELSY ROLON MD ~ Course & Med Decision Making Course & Med Decision Making Pertinent Labs and Imaging studies reviewed. (See chart for details) Pt. admitted to Dr. Silverman for neuro checks and further evaluation. [] Final Impression Final Impression 1. Head Injury[] 2. Anemia 11.8 3. Elevated Creat. / BUN 25/1.6 4. Dehydration 5. Thyroid nodules 6. Frequent Falls 7. Dementia 8. COPD Oxygen Dependent 2 Lit 9. UTI 10.Elevated D-dimer 0.99 11. Hx. Dysrhythmia Dragon Disclaimer Dragon Disclaimer This electronic medical record was generated, in whole or in part, using a voice recognition dictation system. Discharge Summary Visit Information Final Diagnosis Problems Medical Problems: (1) Falling Status: Acute Brief Hospital Course Allergies Allergies Coded Allergies Type Severity Reaction Last Updated Verified Penicillins Allergy Intermediate 12/19/18 Yes Sulfa (Sulfonamide Antibiotics) Allergy Intermediate 12/19/18 Yes bacitracin Allergy Intermediate 12/19/18 Yes ciprofloxacin Allergy Intermediate 12/19/18 Yes Vital Signs Vital Signs Date Time Temp Pulse Resp B/P (MAP) Pulse Ox O2 Delivery O2 Flow Rate FiO2 01/16/19 22:35 97.5 80 20 143/71 (95) 95 Nasal Cannula 2.0 Lab Results Laboratory Tests Test 01/16/19 22:40 01/17/19 00:20 White Blood Count 8.5 x10^3/uL (4.0-11.0) Red Blood Count 3.89 x10^6/uL (3.50-5.40) Hemoglobin 11.8 g/dL (12.0-15.5) Hematocrit 35.7 % (36.0-47.0) Mean Corpuscular Volume 92 fL (79-100) Mean Corpuscular Hemoglobin 30 pg (25-35) Mean Corpuscular Hemoglobin Concent 33 g/dL (31-37) Red Cell Distribution Width 13.9 % (11.5-14.5) Platelet Count 230 x10^3/uL (140-400) Neutrophils (%) (Auto) 43 % (31-73) Lymphocytes (%) (Auto) 44 % (24-48) Monocytes (%) (Auto) 10 % (0-9) Eosinophils (%) (Auto) 4 % (0-3) Basophils (%) (Auto) 1 % (0-3) Neutrophils # (Auto) 3.6 x10^3uL (1.8-7.7) Lymphocytes # (Auto) 3.7 x10^3/uL (1.0-4.8) Monocytes # (Auto) 0.8 x10^3/uL (0.0-1.1) Eosinophils # (Auto) 0.3 x10^3/uL (0.0-0.7) Basophils # (Auto) 0.1 x10^3/uL (0.0-0.2) Prothrombin Time 9.9 SEC (9.4-11.4) Prothromb Time International Ratio 1.0 (0.9-1.1) Activated Partial Thromboplast Time 27 SEC (23-33) D-Dimer (Maisha) 0.99 mg/L (0.00-0.50) Sodium Level 140 mmol/L (136-145) Potassium Level 4.1 mmol/L (3.5-5.1) Chloride Level 101 mmol/L (98-107) Carbon Dioxide Level 30 mmol/L (21-32) Anion Gap 9 (6-14) Blood Urea Nitrogen 25 mg/dL (7-20) Creatinine 1.6 mg/dL (0.6-1.0) Estimated GFR (Cockcroft-Gault) 31.3 BUN/Creatinine Ratio 16 (6-20) Glucose Level 94 mg/dL (70-99) Calcium Level 8.5 mg/dL (8.5-10.1) Total Bilirubin 0.2 mg/dL (0.2-1.0) Aspartate Amino Transf (AST/SGOT) 18 U/L (15-37) Alanine Aminotransferase (ALT/SGPT) 23 U/L (14-59) Alkaline Phosphatase 81 U/L (46-116) Troponin I Quantitative < 0.017 ng/mL (0-0.055) WI-Giv-A-Type Natriuretic Peptide 176 pg/mL (0-449) Total Protein 6.7 g/dL (6.4-8.2) Albumin 3.6 g/dL (3.4-5.0) Albumin/Globulin Ratio 1.2 (1.0-1.7) Urine Collection Type Unknown Urine Color Yellow Urine Clarity Cloudy Urine pH 5.0 Urine Specific [place] 1.015 Urine Protein Neg (NEG-TRACE) Urine Glucose (UA) Neg mg/dL (NEG) Urine Ketones (Stick) Neg mg/dL (NEG) Urine Blood Trace (NEG) Urine Nitrite Pos (NEG) Urine Bilirubin Neg (NEG) Urine Urobilinogen Dipstick 0.2 mg/dL (0.2 mg/dL) Urine Leukocyte Esterase Mod (NEG) Urine RBC 1-2 /HPF (0-2) Urine WBC 20-40 /HPF (0-4) Urine Squamous Epithelial Cells Many /LPF Urine Bacteria Many /HPF (0-FEW) Urine Mucus Slight /LPF Brief Hospital Course Ms. Bustamante is a 78 old female who presented with hx falling, head injury. Admitted Dr. Silverman Discharge Information Condition at Discharge: Improved Dischare Medications Current Medications Lactated Ringer's 1,000 ml @ 500 mls/hr 1X ONCE IV Last administered on 01/17/19at 02:12; Start 01/17/19 at 01:45; Stop 01/17/19 at 03:44 Enoxaparin Sodium (Lovenox 80mg Syringe) 80 mg 1X ONCE SQ Last administered on 01/17/19at 01:45; Start 01/17/19 at 01:45; Stop 01/17/19 at 02:32; Status DC Cephalexin HCl (Keflex) 500 mg 1X ONCE PO Last administered on 01/17/19at 02:12; Start 01/17/19 at 01:45; Stop 01/17/19 at 02:32; Status DC Ondansetron HCl (Zofran) 4 mg PRN Q4HRS PRN IV NAUSEA/VOMITING; Start 01/17/19 at 02:00; Stop 01/18/19 at 01:59 Acetaminophen (Tylenol) 650 mg PRN Q4HRS PRN PO FEVER; Start 01/17/19 at 02:00; Stop 01/18/19 at 01:59 Albuterol/ Ipratropium (Duoneb) 3 ml RTQID NEB ; Start 01/17/19 at 08:00; Stop 01/18/19 at 07:59 Cephalexin HCl (Keflex) 500 mg TID PO ; Start 01/17/19 at 09:00; Stop 01/17/19 at 09:00; Status DC Enoxaparin Sodium (Lovenox 80mg Syringe) 80 mg BID SQ ; Start 01/17/19 at 09:00; Stop 01/17/19 at 09:00; Status DC Cephalexin HCl (Keflex) 500 mg TID PO ; Start 01/17/19 at 09:00; Status UNV Enoxaparin Sodium (Lovenox 80mg Syringe) 80 mg BID SQ ; Start 01/17/19 at 09:00; Status UNV Active Scripts Active Duoneb 0.5-3(2.5) Mg/3 Ml (Albuterol/Ipratropium) 3 Ml Ampul.neb 3 Ml NEB RTQID Azithromycin Tablet (Azithromycin) 250 Mg Tablet 500 Mg PO DAILY 3 Days Reported Pristiq Er (Desvenlafaxine Succinate) 100 Mg Tab.er.24h 2 Tab PO DAILY Aspirin 81 Mg Tab.chew 81 Mg PO DAILY Combivent Respimat Inhal (Ipratropium/Albuterol Sulfate) 4 Gm Aer.w.adap 1 Puff INH QID Super B With Vit C (B Complex With Vitamin C) 1 Each Capsule 1 Each PO DAILY Lisinopril 40 Mg Tablet 1 Tab PO DAILY Advair 100-50 Diskus (Fluticasone/Salmeterol) 1 Each Disk.w.dev 1 Each IH BID Lorazepam 0.5 Mg Tablet 1 Tab PO BID PRN Tramadol Hcl (Tramadol HCl) 50 Mg Tablet 50 Mg PO QHS PRN Benzonatate 100 Mg Capsule 1 Cap PO TID PRN Cyclobenzaprine Hcl 5 Mg Tablet 1 Tab PO TID PRN Furosemide 20 Mg Tablet 1 Tab PO DAILY Multivitamins (Multivitamin) 1 Each Tablet 1 Each PO QHS Bisacodyl 5 Mg Tablet.dr 5 Mg PO QODAY PRN Fish Oil 1,000 mg Softgel ([place]olla-3/Dha/Epa/Fish Oil) 1,000 Mg Capsule 1,000 Mg PO BID Seroquel (Quetiapine Fumarate) 100 Mg Tablet 1 Tab PO QHS Lamotrigine 200 Mg Tablet 200 Mg PO QHS Dragon Disclaimer This chart was dictated in whole or in part using Voice Recognition software in a busy, high-work load, and often noisy Emergency Department environment. It may contain unintended and wholly unrecognized errors or omissions. KELSY ROLON MD Jan 16, 2019 22:18
--- NOTE | 2019-01-16 23:37 | RAD ---
CT Head W/O Contrast: History: Fall x3, head injury Comparison: none Axial images were obtained without contrast. There is moderate diffuse atrophy. There is no mass effect, extraaxial fluid collections or hydrocephalus. There is no gross bleed. Moderate, diffuse periventricular and subcortical white matter hypoattenuation is seen. There is no focal loss of shahid-white matter distinction to suggest acute ischemia, i.e. stroke. Impression: No acute findings. End impression CT C-Spine without contrast: Clinical History: Pain status post fall Technique: Axial helical images of the cervical spine were obtained without contrast, axial coronal and sagittal reconstruction was performed. Findings: There is no loss of vertebral body stature. There is no prevertebral soft tissue swelling. There is mild degenerative anterolisthesis of C4 on C5. There is reversal of the normal cervical lordosis which can be positional or could be chronic. The C1-C2 relationship is normal. The visualized osseous structures appear normal. Evaluation of the central canal is limited without contrast. There is multiple posterior disc bulges resulting in flattening of the thecal sac. There does not appear to be gross flattening of the cervical cord. There is moderate narrowing of multiple neuroforamen. There is multiple thyroid nodules bilaterally. Impression: 1. Moderate degenerative changes. 2. Thyroid nodules bilaterally patient should follow-up correlation with TSH and ultrasound as an outpatient. 3. No acute findings. Clinical correlation suggested. PQRS Compliance Statement: One or more of the following individualized dose reduction techniques were utilized for this examination: 1. Automated exposure control 2. Adjustment of the mA and/or kV according to patient size 3. Use of iterative reconstruction technique Electronically signed by: Demond Gonzalez III, MD (01/16/2019 11:35 PM) [place] [id number]
[2019-01-17 00:18] LABS: BASO # 0.1 x10^3/uL (0.0-0.2); BASO % 1 % (0-3); EOS # 0.3 x10^3/uL (0.0-0.7); EOS % 4 % (0-3); HEMATOCRIT 35.7 % (36.0-47.0); HEMOGLOBIN 11.8 g/dL (12.0-15.5); LYMPH # 3.7 x10^3/uL (1.0-4.8); LYMPH % 44 % (24-48); MEAN CORPUSCULAR HEMOGLOBIN 30 pg (25-35); MEAN CORPUSCULAR HGB CONC 33 g/dL (31-37); MEAN CORPUSCULAR VOLUME 92 fL (79-100); MONO # 0.8 x10^3/uL (0.0-1.1); MONO % 10 % (0-9); NEUT # 3.6 x10^3uL (1.8-7.7); NEUT % 43 % (31-73); PLATELET COUNT 230 x10^3/uL (140-400); RED BLOOD COUNT 3.89 x10^6/uL (3.50-5.40); RED CELL DISTRIBUTION WIDTH 13.9 % (11.5-14.5); WHITE BLOOD COUNT 8.5 x10^3/uL (4.0-11.0)
[2019-01-17 00:20] LABS: ALBUMIN 3.6 g/dL (3.4-5.0); ALBUMIN/GLOBULIN RATIO 1.2 (1.0-1.7); CALCIUM 8.5 mg/dL (8.5-10.1); CREATININE 1.6 mg/dL (0.6-1.0); GFR 31.3; POTASSIUM 4.1 mmol/L (3.5-5.1); TOTAL BILIRUBIN 0.2 mg/dL (0.2-1.0); TOTAL PROTEIN 6.7 g/dL (6.4-8.2)
[2019-01-17 01:32] LABS: BACTERIA,URINE MANY /HPF (0-FEW); BILIRUBIN,URINE NEG (NEG); CLARITY,URINE CLOUDY; COLOR,URINE YELLOW; GLUCOSE,URINE NEG (NEG); NITRITE,URINE POS (NEG); SQUAMOUS EPITHELIAL CELL,UR MANY /LPF; UROBILINOGEN,URINE 0.2 mg/dL (0.2 mg/dL); WBC,URINE 20-40 /HPF (0-4)
[2019-01-17] MEDS ORDERED: IV RINGERS SOLUTION,LACTATED 1,000 ML IV ONE (01:45)
[2019-01-17] MEDS ORDERED: ENOXAPARIN ** NOTE DOSE ** SYRINGE SQ ONE (01:45)
[2019-01-17] MEDS ORDERED: CEPHALEXIN 250 MG CAPSULE PO ONE (01:45)
[2019-01-17] MEDS ORDERED: ONDANSETRON PF 4 MG/2 ML VIAL. IV PRN (02:00)
[2019-01-17] MEDS ORDERED: ACETAMINOPHEN 325 MG TABLET PO PRN (02:00)
[2019-01-17 03:33] VITALS: BP 136/74
[2019-01-17 07:37] VITALS: BP 123/74
[2019-01-17] MEDS ORDERED: IPRATRPIUM/ALBUTEROL 0.5/2.5MG 3 ML NEBU. NEB SCH (08:00)
[2019-01-17] MEDS: ENOXAPARIN ** NOTE DOSE ** SYRINGE SQ SCH ×2 (08:32→21:10)
[2019-01-17] MEDS: CEPHALEXIN 250 MG CAPSULE PO SCH ×3 (08:33→21:10)
[2019-01-17] MEDS: LACTOBACILLUS RHAMNOSUS GG 1 CAPSULE. PO SCH ×2 (08:35→21:09)
[2019-01-17] MEDS ORDERED: ENOXAPARIN ** NOTE DOSE ** SYRINGE SQ SCH (09:00)
[2019-01-17] MEDS ORDERED: CEPHALEXIN 250 MG CAPSULE PO SCH (09:00)
--- NOTE | 2019-01-17 09:05 | RAD ---
AP chest. HISTORY: Fall AP view was taken of the chest. There is been an improvement in the mild infiltrates noted on the study from December 18. There is residual linear scarring or atelectasis. No new infiltrates are noted. Heart is normal in size. There is no pleural effusion. IMPRESSION: 1. Improving infiltrates. 2. No new infiltrates or acute finding. Electronically signed by: Avila Anglin MD (01/17/2019 9:01 AM) [facility]
[2019-01-17 10:22] VITALS: BP 121/76
[2019-01-17] MEDS ORDERED: BISACODYL TAB 5 MG TABLET.DR. PO PRN (10:45)
[2019-01-17] MEDS ORDERED: traMADol 50 MG TABLET PO PRN (10:45)
[2019-01-17] MEDS: IPRATRPIUM/ALBUTEROL 0.5/2.5MG 3 ML NEBU. NEB SCH ×3 (10:56→20:00)
[2019-01-17] MEDS: FUROSEMIDE 20 MG TABLET PO SCH (12:10)
--- NOTE | 2019-01-17 14:21 | HP ---
ADMIT DATE: 01/17/2019 HISTORY OF PRESENT ILLNESS: A 78-year-old female from a snf, apparently has been falling several times. The patient already has Alzheimer dementia. The patient has been falling. She says she had tripped over her own feet. They brought her into the Emergency Room for evaluation. CT head and neck; outside of some thyroid nodules and degenerative changes, there was not anything acute going on, but she was admitted for evaluation of her falling. PAST MEDICAL HISTORY: Includes that of dementia, respiratory disorder, COPD, emphysema, abdominal pain, urinary tract infection, depression, anxiety, tobacco use, smoking exposure, factor V Leiden apparently. Tetanus shot, influenza vaccine is up to date, history of breast cancer in the father. ALLERGIES: SULFUR, BACITRACIN, CIPRO AND SULFA DRUGS. SOCIAL HISTORY: Used to have about 40 to 00-aadn-dksm history of smoking. Does not smoke anymore. Denies alcohol or drug use. Lives at snf. MEDICATIONS: The patient's medications were reconciled in the usual fashion including bisacodyl/laxative, furosemide 20, DuoNeb, tramadol, aspirin, Zithromax, B complex, benzoate, cyclobenzaprine, lisinopril 40, lamotrigine 200 mg daily, lorazepam 1, omega 3 and Seroquel 100. REVIEW OF SYSTEMS: The patient basically says she does not know what is going on. She is very confused, disoriented. We will continue to monitor her accordingly and make further evaluation on her as indicated. PHYSICAL EXAMINATION: GENERAL: White female looking stated age of 78. The patient otherwise is alert and oriented x 3. Speech fluent, but she has appropriate. Cranial nerves 2-12 grossly intact. VITAL SIGNS: Blood pressure 123/74, respiratory rate 20, pulse 75, afebrile, on 2 liters nasal cannula. HEENT: The patient's head was atraumatic, normocephalic. Eyes: PERRLA without jaundice. Mouth and throat were normal. NECK: Supple without JVD or thyromegaly. LUNGS: Diminished throughout, but clear. CARDIOVASCULAR: Regular sinus rhythm, S1, S2, without murmur, rub, thrill, or extra heart sound. ABDOMEN: Soft, nontender, no rebound or guarding. Positive bowel sounds. No hepatosplenomegaly was noted. EXTREMITIES: No clubbing, cyanosis or edema. NEUROLOGIC: The patient was alert and oriented x 3. IMPRESSION: Multiple falls, orthostasis, slight abdominal pain, chronic kidney disease stage 3, mild anemia, urinary tract infection. Monitor the patient accordingly and trying to treat her urinary tract infection and get PT, OT to evaluate her walking characteristics. MAYTE SILVERMAN MD DR: BECKA/brijesh JOB#: [id number] / [id number]
--- NOTE | 2019-01-17 14:57 | RAD ---
Bilateral lower extremity venous ultrasound, : History: Elevated d-dimer, dyspnea Sonographic evaluation including grayscale, color flow and spectral Doppler analysis of the deep veins of the lower extremities was performed. The femoral and popliteal veins demonstrate normal compressibility and normal responses to distal augmentation maneuvers. Color imaging of those vessels shows no evidence of intraluminal clot. The visualized deep veins in both calves are patent. IMPRESSION: 1. There is no sonographic evidence of deep vein thrombosis in either lower extremity. Electronically signed by: Avila Anglin MD (01/17/2019 2:54 PM) [facility]
[2019-01-17 15:04] LABS: BACTERIA,URINE FEW /HPF (0-FEW); BILIRUBIN,URINE NEG (NEG); CLARITY,URINE HAZY; COLOR,URINE YELLOW; GLUCOSE,URINE NEG (NEG); NITRITE,URINE NEG (NEG); RBC,URINE 0 /HPF (0-2); SQUAMOUS EPITHELIAL CELL,UR OCC /LPF; UROBILINOGEN,URINE 0.2 mg/dL (0.2 mg/dL)
[2019-01-17 15:25] VITALS: BP 172/75
[2019-01-17 19:00] VITALS: BP 146/78
[2019-01-17] MEDS: NITROFURANTOIN MONOHYD/M-CRYST 100 MG CAPSULE. PO SCH (21:10)
[2019-01-17 23:00] VITALS: BP 136/80
[2019-01-18] MEDS: IPRATRPIUM/ALBUTEROL 0.5/2.5MG 3 ML NEBU. NEB SCH ×2 (05:33→10:58)
[2019-01-18 06:11] VITALS: BP 151/77
--- NOTE | 2019-01-18 06:24 | EKG ---
[address] [address] Test Date: 2019-01-16 Test Time: 22:55:06 Pat Name: CRISTIAN GLORIA Department: Room: Gender: F Correspondent: CAMILLE : 1940 Requested By: KELSY ROLON Order Number: [id number] Reading MD: Measurements Intervals [place] Rate: 76 P: 68 IN: 186 QRS: -39 QRSD: 88 T: 27 QT: 392 QTc: 445 Interpretive Statements SINUS RHYTHM ABNORMAL LEFT AXIS DEVIATION R-S TRANSITION ZONE IN V LEADS DISPLACED TO THE LEFT LEFT ANTERIOR FASCICULAR BLOCK ABNORMAL ECG RI6.01 No previous ECG available for comparison
[2019-01-18 08:39] VITALS: BP 144/76
[2019-01-18] MEDS: CEPHALEXIN 250 MG CAPSULE PO SCH ×2 (08:40→14:00)
[2019-01-18] MEDS: NITROFURANTOIN MONOHYD/M-CRYST 100 MG CAPSULE. PO SCH (08:40)
[2019-01-18] MEDS: ENOXAPARIN ** NOTE DOSE ** SYRINGE SQ SCH (08:40)
[2019-01-18] MEDS: FUROSEMIDE 20 MG TABLET PO SCH (08:41)
[2019-01-18] MEDS: LACTOBACILLUS RHAMNOSUS GG 1 CAPSULE. PO SCH (08:41)
[2019-01-18] MEDS ORDERED: MECLIZINE 12.5 MG TABLET. PO SCH (09:15)
[2019-01-18 09:40] LABS: CALCIUM 8.9 mg/dL (8.5-10.1); CREATININE 1.1 mg/dL (0.6-1.0); GFR 48.3; POTASSIUM 4.1 mmol/L (3.5-5.1)
[2019-01-18] MEDS ORDERED: ONDANSETRON ODT 4 MG TAB.RAPDIS PO PRN (10:45)
[2019-01-18] MEDS ORDERED: ACETAMINOPHEN 500 MG TABLET PO PRN (10:45)
[2019-01-18 10:54] VITALS: BP 134/72
[2019-01-18 10:55] VITALS: BP_SYST 137; BP_SYST 147; BP_DIAS 74; BP_DIAS 83
[2019-01-18] MEDS ORDERED: ACET500T68 PO (13:41)
[2019-01-18] MEDS ORDERED: LACT1CAP19 PO (13:41)
[2019-01-18] MEDS ORDERED: NITR100C6 PO (13:41)
[2019-01-18 14:54] VITALS: BP 123/74
== END 2019-01-18 15:30 | disposition home or self-care (01) ==
LOC: ER 22:13 → INTOOBSV 01-17 02:30 → 1 SOUTH 01-17 02:30 → ER 01-17 02:49
PROVIDERS: ADMIT Family Medicine; ATTEND Family Medicine
DX: R29.6 Repeated falls (principal); J43.9 Emphysema, unspecified; G30.9 Alzheimer's disease, unspecified; F02.80 Dementia in other diseases classified elsewhere, unspecified severity, without behavioral disturbance, psychotic disturbance, mood disturbance, and anxiety; K58.9 Irritable bowel syndrome, unspecified; E04.2 Nontoxic multinodular goiter; M19.90 Unspecified osteoarthritis, unspecified site; Z87.891 Personal history of nicotine dependence; Z99.81 Dependence on supplemental oxygen; F41.9 Anxiety disorder, unspecified; J40 Bronchitis, not specified as acute or chronic; F32.9 Major depressive disorder, single episode, unspecified; R09.02 Hypoxemia; S09.90XA Unspecified injury of head, initial encounter; X58.XXXA Exposure to other specified factors, initial encounter; D64.9 Anemia, unspecified; N39.0 Urinary tract infection, site not specified; E86.0 Dehydration; I49.9 Cardiac arrhythmia, unspecified; D68.51 Activated protein C resistance; N18.3 Chronic kidney disease, stage 3 (moderate); I12.9 Hypertensive chronic kidney disease with stage 1 through stage 4 chronic kidney disease, or unspecified chronic kidney disease; D63.1 Anemia in chronic kidney disease; Y93.89 Activity, other specified; Y92.89 Other specified places as the place of occurrence of the external cause; Y99.8 Other external cause status
CPT/HCPCS: 36415; 70450; 71045; 72125; 80048; 80053; 81001; 82306; 82607; 83880; 84443; 84484; 85025; 85379; 85610; 85730; 87086; 87641; 93005; 93970; 94640; 96360; 96372; 97161; 97166; 99284; G0238; G0378; J1650; J7120; J7620; J8597; Q0162; G0379; 99285-25

== ENCOUNTER 2019-01-25 22:16 | Observation (INO) | payer OTHER ==
[~2019-01-25] VITALS: Ht 165.1 cm; Wt 84.1 kg
[~2019-01-25 22:16] MED LIST changes: +ACET500T68 PO; +LACT1CAP19 PO; +NITR100C6 PO
--- NOTE | 2019-01-25 22:41 | ED.ADGEN ---
Past History Past Medical History: Arthritis, COPD, Dementia, DVT, Hypertension, IBS, Other Past Surgical History: No Surgical History Alcohol Use: None Drug Use: None Adult General Chief Complaint Chief Complaint ".. I ve been falling a lot... I fell yesterday.. torn up this Rt. elbow.. and I tipped today.. over an green ottoman. this time.. I hurt this hip.. I can't bear wt on it... " HPI HPI Patient is a 78 year old female who presents with above hx and fall. Pt hx. multiple falls. Pt. advised she hit her head yesterday. Pt. resident of [facility] since 01/04/19. Pt. hx multiple medical issues COPD oxygen dependent, HTN, Depression, Dementia, Behavioral disturbances, anxiety disorder, and gait disorder. Pt on arrival very sedated had received her night meds. Pt. normally follows with Dr. Evans. ( Part of prior hx loss because computor issure) Review of Systems Review of Systems Poor Historian Constitutional: Denies fever or chills [] Eyes: Denies change in visual acuity, redness, or eye pain [] HENT: Denies nasal congestion or sore throat [] Respiratory: Denies cough or shortness of breath [] Cardiovascular: No additional information not addressed in HPI [] GI: Denies abdominal pain, nausea, vomiting, bloody stools or diarrhea [] : Denies dysuria or hematuria [] Musculoskeletal: Complaints of contusions and Rt. Hip pain Integument: Denies rash or skin lesions [] Neurologic: Denies headache, focal weakness or sensory changes [] Endocrine: Denies polyuria or polydipsia [] All other systems were reviewed and found to be within normal limits, except as documented in this note. Family History Family History Not currently available Current Medications Current Medications Current Medications Medications (Trade) Dose Ordered Sig/Benjamin Start Time Stop Time Status Last Admin Dose Admin Diphtheria/ Tetanus/Acell Pertussis (Boostrix) 0.5 ml ONCE ONCE 01/25/19 23:15 01/25/19 23:16 DC 01/26/19 00:24 0.5 ML Lactated Ringer's 1,000 ml @ 100 mls/hr Q10H 01/25/19 22:42 01/26/19 08:42 DC 01/26/19 00:24 100 MLS/HR Morphine Sulfate (Morphine 2mg Syringe) 2 mg PRN Q15MIN PRN 01/25/19 22:45 01/26/19 16:15 DC 01/26/19 00:23 2 MG Allergies Allergies Allergies Coded Allergies Type Severity Reaction Last Updated Verified Penicillins Allergy Intermediate 12/19/18 Yes Sulfa (Sulfonamide Antibiotics) Allergy Intermediate 12/19/18 Yes bacitracin Allergy Intermediate 12/19/18 Yes ciprofloxacin Allergy Intermediate 12/19/18 Yes Physical Exam Physical Exam Constitutional: Very sedated HENT: Normocephalic, atraumatic, bilateral external ears normal, oropharynx moist, no oral exudates, nose normal. [] Eyes: PERRLA, EOMI, conjunctiva normal, no discharge. [] Neck: Normal range of motion, no tenderness, supple, no stridor. [] Cardiovascular . Bradycardia Heart rate regular rhythm, no murmur PMI to Lt. ] Lungs & Thorax: Bilateral breath sounds equal at apexes with scattered wheezes on auscultation [] Abdomen: Bowel sounds normal, soft, no tenderness, no masses, no pulsatile masses. [Scar. Skin: Warm, dry, no erythema, no rash. [] Back: No tenderness, no CVA tenderness. [] Extremities: No tenderness, no cyanosis, no clubbing, ROM intact, no edema. Arthritic changes. [] Neurologic: Alert and oriented X 3, normal motor function, normal sensory function, no focal deficits noted. [] Psychologic: Affect normal, judgement normal, mood normal. [] Current Patient Data Vital Signs Vital Signs Date Time Temp Pulse Resp B/P (MAP) Pulse Ox O2 Delivery O2 Flow Rate FiO2 01/25/19 22:26 98.1 88 19 97 Room Air Lab Results Laboratory Tests Test 01/26/19 00:11 White Blood Count 8.6 x10^3/uL (4.0-11.0) Red Blood Count 3.90 x10^6/uL (3.50-5.40) Hemoglobin 11.6 g/dL (12.0-15.5) L Hematocrit 35.8 % (36.0-47.0) L Mean Corpuscular Volume 92 fL (79-100) Mean Corpuscular Hemoglobin 30 pg (25-35) Mean Corpuscular Hemoglobin Concent 33 g/dL (31-37) Red Cell Distribution Width 14.1 % (11.5-14.5) Platelet Count 224 x10^3/uL (140-400) Neutrophils (%) (Auto) 51 % (31-73) Lymphocytes (%) (Auto) 37 % (24-48) Monocytes (%) (Auto) 9 % (0-9) Eosinophils (%) (Auto) 2 % (0-3) Basophils (%) (Auto) 1 % (0-3) Neutrophils # (Auto) 4.4 x10^3uL (1.8-7.7) Lymphocytes # (Auto) 3.2 x10^3/uL (1.0-4.8) Monocytes # (Auto) 0.7 x10^3/uL (0.0-1.1) Eosinophils # (Auto) 0.2 x10^3/uL (0.0-0.7) Basophils # (Auto) 0.1 x10^3/uL (0.0-0.2) Prothrombin Time 9.9 SEC (9.4-11.4) Prothrombin Time INR 1.0 (0.9-1.1) Activated Partial Thromboplast Time 27 SEC (23-33) D-Dimer (Maisha) 1.01 mg/L (0.00-0.50) H Sodium Level 139 mmol/L (136-145) Potassium Level 4.0 mmol/L (3.5-5.1) Chloride Level 103 mmol/L (98-107) Carbon Dioxide Level 32 mmol/L (21-32) Anion Gap 4 (6-14) L Blood Urea Nitrogen 17 mg/dL (7-20) Creatinine 1.2 mg/dL (0.6-1.0) H Estimated GFR (Cockcroft-Gault) 43.7 Glucose Level 93 mg/dL (70-99) Calcium Level 8.6 mg/dL (8.5-10.1) Magnesium Level 2.0 mg/dL (1.8-2.4) Total Bilirubin 0.2 mg/dL (0.2-1.0) Direct Bilirubin 0.1 mg/dL (0.0-0.2) Aspartate Amino Transferase (AST) 16 U/L (15-37) Alanine Aminotransferase (ALT) 29 U/L (14-59) Alkaline Phosphatase 76 U/L (46-116) Creatine Kinase 87 U/L (26-192) Troponin I Quantitative < 0.017 ng/mL (0-0.055) PF-Dzi-L-Type Natriuretic Peptide 245 pg/mL (0-449) Total Protein 6.2 g/dL (6.4-8.2) L Albumin 3.3 g/dL (3.4-5.0) L Thyroid Stimulating Hormone (TSH) 0.580 uIU/mL (0.358-3.740) EKG EKG My interpretation of EKG shows a sinus rhythm at 52 bpm. There is right axis deviations and right bundle-branch block. No findings acute STEMI with contralateral changes.[] Radiology/Procedures Radiology/Procedures My interpretation of chest x-ray shows chronic changes. No significant interval[] acute changes. See formal report when available. I interpretation CT of head and neck shows degenerative joint changes of neck. No obvious fracture. Head shows white matter disease changes. No shift, mass, edema, bleed, or fracture. See formal report when available Course & Med Decision Making Course & Med Decision Making Pertinent Labs and Imaging studies reviewed. (See chart for details) Pt. admitted to Dr. Evans for further eval. and tx. Note errors - possible loss of material do computer shut down. [] Final Impression Final Impression 1. Hx. falling 2. COPD - oxygen dependent[] 3. Contusions and Abrasions 4. Dementia 5. Anemia 6. Elevated D-dimer `1.01 7. HTN Dragon Disclaimer Dragon Disclaimer This electronic medical record was generated, in whole or in part, using a voice recognition dictation system. KELSY ROLON MD Jan 25, 2019 22:41
[2019-01-25] MEDS ORDERED: IV RINGERS SOLUTION,LACTATED 1,000 ML IV SCH (22:42)
[2019-01-25] MEDS ORDERED: MORPHINE SULFATE 2 MG/ML DISP.SYRIN. IV/SQ PRN (22:45)
[2019-01-25] MEDS ORDERED: DIPHTH,PERTUSS(ACELL),TET TOX 0.5 ML DISP.SYRIN. VAX IM ONE (23:15)
--- NOTE | 2019-01-25 23:57 | RAD ---
PQRS Compliance Statement: One or more of the following individualized dose reduction techniques were utilized for this examination: 1. Automated exposure control 2. Adjustment of the mA and/or kV according to patient size 3. Use of iterative reconstruction technique CT head and cervical spine without contrast 01/25/2019 10:55 PM INDICATION: Head injury yesterday with recent falls. Headache and neck pain. COMPARISON: CT head January 16, 2019 TECHNIQUE: Multiple axial CT images of the head were obtained from skull base through the vertex without intravenous contrast. Multiple axial CT images of the cervical spine were obtained without intravenous contrast. Coronal and sagittal reformats are provided. FINDINGS: Head: Ventricles, sulci and basal cisterns are prominent compatible with mild generalized cerebral volume loss. Low-attenuation in the periventricular white matter is suggestive of chronic small vessel ischemic changes. There is no hydrocephalus. Matute-white matter differentiation is normal. There is no acute intracranial hemorrhage. There is no mass, mass effect or midline shift. Posterior fossa is normal in appearance. Visualized portions of the orbits are normal. Paranasal sinuses are well aerated. Mastoid air cells are well aerated. Scalp and calvaria are normal. Cervical spine: Alignment of the cervical spine is normal. Skull base is intact. Craniocervical junction is normal in appearance. Atlantoaxial articulation is normal. There is osseous remodeling of the inferior endplate of C5, superior and inferior endplate of C6 and superior endplate of C7, not significantly changed since January 16, 2019. There is advanced disc height loss at C5-C6 and C6-C7. There is grade 1 anterolisthesis of C4 on C5. No significant prevertebral edema. Mild multilevel facet arthropathy. Spinous processes are intact. Moderate cervical spondylosis appears stable. There is no prevertebral soft tissue swelling. Bilateral thyroid nodules appear stable. Biapical pleural-parenchymal scarring is identified. IMPRESSION: 1. No acute intracranial hemorrhage. Mild generalized cerebral volume loss. Low-attenuation in the periventricular white matter is suggestive of chronic small vessel ischemic changes. 2. No acute fracture of the cervical spine. Moderate cervical spondylosis appears stable. Electronically signed by: Janell Ye MD (01/25/2019 11:54 PM) [facility]
--- NOTE | 2019-01-25 23:59 | EKG ---
[address] [address] Test Date: 2019-01-25 Test Time: 23:59:01 Pat Name: CRISTIAN GLORIA Department: Room: Gender: F Senior Technical Program Manager: CAMILLE : 1940 Requested By: KELSY ROLON Order Number: [id number] Reading MD: Measurements Intervals [place] Rate: 52 P: 30 ME: 174 QRS: 28 QRSD: 84 T: 24 QT: 526 QTc: 492 Interpretive Statements SINUS RHYTHM PROLONGED QT NO SPECIFIC ECG ABNORMALITIES RI6.01 No previous ECG available for comparison
[2019-01-26 00:35] LABS: BASO # 0.1 x10^3/uL (0.0-0.2); BASO % 1 % (0-3); EOS # 0.2 x10^3/uL (0.0-0.7); EOS % 2 % (0-3); HEMATOCRIT 35.8 % (36.0-47.0); HEMOGLOBIN 11.6 g/dL (12.0-15.5); LYMPH # 3.2 x10^3/uL (1.0-4.8); LYMPH % 37 % (24-48); MEAN CORPUSCULAR HEMOGLOBIN 30 pg (25-35); MEAN CORPUSCULAR HGB CONC 33 g/dL (31-37); MEAN CORPUSCULAR VOLUME 92 fL (79-100); MONO # 0.7 x10^3/uL (0.0-1.1); MONO % 9 % (0-9); NEUT # 4.4 x10^3uL (1.8-7.7); NEUT % 51 % (31-73); PLATELET COUNT 224 x10^3/uL (140-400); RED CELL DISTRIBUTION WIDTH 14.1 % (11.5-14.5); WHITE BLOOD COUNT 8.6 x10^3/uL (4.0-11.0)
[2019-01-26 00:54] LABS: ALBUMIN 3.3 g/dL (3.4-5.0); CALCIUM 8.6 mg/dL (8.5-10.1); CREATININE 1.2 mg/dL (0.6-1.0); DIRECT BILIRUBIN 0.1 mg/dL (0.0-0.2); GFR 43.7; TOTAL BILIRUBIN 0.2 mg/dL (0.2-1.0); TOTAL PROTEIN 6.2 g/dL (6.4-8.2)
[2019-01-26 01:59] LABS: BARBITURATES NEG (NEG); BENZODIAZEPINES NEG (NEG); CANNABINOIDS NEG (NEG); COCAINE NEG (NEG); METHADONE NEG (NEG); OPIATES NEG (NEG); PHENCYCLIDINE NEG (NEG)
[2019-01-26] MEDS ORDERED: ACETAMINOPHEN 325 MG TABLET PO PRN (02:00)
[2019-01-26] MEDS ORDERED: ENOXAPARIN ** NOTE DOSE ** SYRINGE SQ ONE (02:00)
[2019-01-26] MEDS ORDERED: ONDANSETRON PF 4 MG/2 ML VIAL. IV PRN (02:00)
[2019-01-26] MEDS ORDERED: IV RINGERS SOLUTION,LACTATED 1,000 ML IV ONE (02:00)
[2019-01-26 02:05] LABS: AMPHETAMINE/METHAMPHETAMINE NEG (NEG)
[2019-01-26 02:10] LABS: BILIRUBIN,URINE NEG (NEG); CLARITY,URINE HAZY; COLOR,URINE YELLOW; GLUCOSE,URINE NEG (NEG)
[2019-01-26 02:11] LABS: BACTERIA,URINE MANY /HPF (0-FEW); NITRITE,URINE POS (NEG); RBC,URINE OCC /HPF (0-2); SQUAMOUS EPITHELIAL CELL,UR OCC /LPF; UROBILINOGEN,URINE 0.2 mg/dL (0.2 mg/dL); WBC,URINE >40 /HPF (0-4)
[2019-01-26] MEDS ORDERED: ANTI-COAG MONITOR BY PHARMACY. MC PRN (02:15)
--- NOTE | 2019-01-26 04:15 | NUR ---
The patient, CRISTIAN GLORIA, 78 y/o, F admitted by MAYTE SILVERMAN MD, was given written information regarding hospital policies, unit procedures and contact persons. Admission assessment completed. Valuables were checked and left at bedside.
[2019-01-26 04:49] VITALS: BP 128/75
--- NOTE | 2019-01-26 07:40 | NUR ---
wound care patient seen per wound care consult. see wound assessment. patient has a right elbow abrasion/skin tear the area was cleaned, and redressed with samuel, Xeroform gauze with a foam dressing, recommendations of changing every 2-3 days with Xeroform gauze and a foam dressing. patient assessed from head to toe and no other wounds noted at this time. wound care will continue to f/u.
[2019-01-26] MEDS: IPRATRPIUM/ALBUTEROL 0.5/2.5MG 3 ML NEBU. NEB SCH ×2 (08:00→11:23)
--- NOTE | 2019-01-26 08:23 | RAD ---
AP PELVIS Clinical Indication: Injury from fall tonight, pelvic pain. Comparison: None. Findings: There is no acute pelvic fracture. The sacroiliac joints are symmetric. On single view, the hip joints are intact. Mild bilateral arthropathy of the hips for patient age. There is no diastasis of the symphysis pubis. Degenerative spondylosis of the visualized lower lumbar spine. Arterial calcifications are seen. IMPRESSION: No acute pelvic fracture. Electronically signed by: James Izquierdo MD (01/26/2019 8:20 AM) [id number]
[2019-01-26] MEDS ORDERED: ENOXAPARIN ** NOTE DOSE ** SYRINGE SQ SCH (09:00)
--- NOTE | 2019-01-26 09:29 | RAD ---
CHEST AP ONLY History: Chest pain Comparison: January 17, [address] December 19, 2018. Findings: No consolidation or pleural effusion. Normal heart size. Tortuous thoracic aorta. No pneumothorax. Emphysematous changes better characterized on prior CT. Impression: 1. No acute cardiopulmonary process. Electronically signed by: Jaciel Siegel DO (01/26/2019 9:27 AM) [id number]
--- NOTE | 2019-01-26 10:08 | RAD ---
ELBOW RIGHT 3V History: History of trauma. Right elbow pain and abrasions. Technique: Repeat views right elbow. Comparison: None. Findings: Posterior elbow soft tissue irregularity. Normal alignment. No fracture. No significant elbow joint effusion. Mild radiocapitellar degenerative changes with joint space narrowing and marginal osteophyte formation. Impression: 1. No acute osseous abnormality. Posterior elbow soft tissue injury. 2. Mild elbow DJD. Electronically signed by: Jaciel Siegel DO (01/26/2019 10:05 AM) [id number]
--- NOTE | 2019-01-26 10:30 | NUR ---
Pt's daughter called asking about a coloring book, coloring pencils and a word search book with pt's daughter's phone number on it that daughter states pt left at hospital when she was discharged last week. This RN stated she did not know where these items were, but that CM would be contacted. [employer] called and asked, and [facility] activity cart will be searched. WCTM. Bere Barton RN
[2019-01-26] MEDS ORDERED: DIME50TA10 PO (12:14)
[2019-01-26] MEDS ORDERED: IBUP100O25 PO (12:14)
[2019-01-26] MEDS ORDERED: LAMO100T PO (12:14)
[2019-01-26] MEDS ORDERED: ALBU2.5V8 INH (12:14)
[2019-01-26] MEDS ORDERED: CEPH-264 PO (13:00)
[2019-01-26 13:33] VITALS: BP 144/78
[2019-01-26] MEDS ORDERED: HEPARIN for SUB-Q USE 5,000 UNIT/ML VIAL. SQ SCH (14:00)
--- NOTE | 2019-01-26 15:45 | NUR ---
Pt left via WC and an web administrator from [place] at approx 1545. Pt packet given to [facility] web administrator at discharge. PIV removed without incident, and all belongings returned to pt. Report called to Francine at [facility]. Pt not in pain at discharge. Bere Barton RN
--- NOTE | 2019-01-27 15:14 | HP ---
ADMIT DATE: 01/26/2019 HISTORY OF PRESENT ILLNESS: A 78-year-old female came in. She has been falling several times out at the care home. She has been unable to bear weight. She has injuries to her elbow and multiple other areas of her hip and so forth. She was initially seen in the Emergency Room and followed up accordingly. She was admitted for observation as she was extremely weak. PAST MEDICAL HISTORY: She has severe dementia, Alzheimer type as well as hypotension, orthostatic. She has COPD with need of chronic oxygen, irritable bowel syndrome, arthritis, severe depression, anxiety, tobacco abuse, anemia. She has allegedly factor V Leiden deficiency. Her immunizations are up to date for tetanus toxoid and influenza. ALLERGIES: The patient has also allergy to PENICILLIN, SULFUR, BACITRACIN, CIPROFLOXACIN. FAMILY HISTORY: Positive for breast cancer. SOCIAL HISTORY: The patient is a DNR, has a history of heavy smoking of 50-60 pack years. Denies alcohol presently. Lives in a care home. PHYSICAL EXAMINATION: GENERAL: The patient is not really able to give much of a history. Complains of some elbow pain as well as hip pain. The patient otherwise denies everything else. VITAL SIGNS: Blood pressure 144/78, respiratory rate 18, pulse 104, afebrile. HEENT: The patient's head was atraumatic, normocephalic. Eyes: PERRLA without jaundice. The mouth and throat were normal. NECK: Supple, without JVD, carotid bruits or thyromegaly. LUNGS: Diminished. CARDIOVASCULAR: Irregular regular. ABDOMEN: Soft, nontender, bruise to the left elbow area. Just a contusion there as well as abrasion and contusion to the right elbow. ABDOMEN: Soft, nontender. EXTREMITIES: No clubbing, cyanosis or edema. Bruises to the knees, abrasions, otherwise unremarkable. CT scan of the head and cervical spine was unremarkable or unchanged from previous notes. LABORATORY DATA: Hemoglobin slightly low at 11.6 and total albumin slightly low at 3.3. Also, she had greater than 40 white blood cells per high powered field and urine specimens are still pending for cultures. IMPRESSION: Therefore, multiple falls, generalized weakness, severe dementia with Alzheimer type. PLAN: Continue to monitor the patient accordingly, make further evaluation on her as indicated. She was admitted, placed on IV fluids, IV antibiotic therapy and physical and occupational therapy and make further assessment on her as indicated per those results. MAYTE SILVERMAN MD DR: BECKA/brijesh JOB#: [id number] / [id number]
== END 2019-01-26 15:45 | disposition home or self-care (01) ==
LOC: ER 22:16 → INTOOBSV 01-26 00:15 → 1 SOUTH 01-26 00:15
PROVIDERS: ADMIT Family Medicine; ATTEND Family Medicine
DX: R29.6 Repeated falls (principal); J44.9 Chronic obstructive pulmonary disease, unspecified; F02.81 Dementia in other diseases classified elsewhere, unspecified severity, with behavioral disturbance; G30.9 Alzheimer's disease, unspecified; D68.51 Activated protein C resistance; I10 Essential (primary) hypertension; K58.9 Irritable bowel syndrome, unspecified; Z87.891 Personal history of nicotine dependence; Z99.81 Dependence on supplemental oxygen; Z80.3 Family history of malignant neoplasm of breast; Z66 Do not resuscitate; W19.XXXA Unspecified fall, initial encounter; Y92.129 Unspecified place in nursing home as the place of occurrence of the external cause; Y93.89 Activity, other specified; Y92.89 Other specified places as the place of occurrence of the external cause; Y99.8 Other external cause status; Z23 Encounter for immunization
CPT/HCPCS: 36415; 70450; 71045; 72125; 72170; 73080; 80048; 80076; 80307; 81001; 82550; 83735; 83880; 84443; 84484; 85025; 85379; 85610; 85730; 87086; 87641; 90471; 90715; 93005; 94640; 96365; 96372; 97110; 97162; 97166; 97535; 99284; G0378; J0696; J1650; J2270; J7120; J7620; G0379

== ENCOUNTER 2019-02-04 16:21 | Inpatient (IN) | payer OTHER ==
[~2019-02-04] VITALS: Ht 167.6 cm; Wt 84.1 kg
[~2019-02-04 16:21] MED LIST changes: +ALBU2.5V8 INH; +CEPH-264 PO; +DIME50TA10 PO; +IBUP100O25 PO; +LAMO100T PO
--- NOTE | 2019-02-04 16:32 | PHYS DOC ---
Past History Past Medical History: Arthritis, COPD, Dementia, DVT, Hypertension, IBS, Other Additional Past Medical Histor: frequent falls (ANMOL TURPIN DO) Past Surgical History: No Surgical History (ANMOL TURPIN DO) Smoking: Cigarettes Alcohol Use: None Drug Use: None (ANMOL TURPIN DO) Adult General Chief Complaint Chief Complaint: MECHANICAL FALL HPI HPI Patient is a 78-year-old female presents with a head injury after a mechanical fall while going to the restroom. She denies loss of consciousness. Staff heard her fall and she was awake when they arrived, at the assisted care facility where she resides. Patient is a known fall risk and insisted on going to the bathroom herself. Patient denies any chest pain or palpitations. Notes that she also has back pain since the fall. Nothing makes the symptoms better or worse. Patient arrived by EMS, they note that she is on oxygen continuously, and that her room air saturation was in the upper 80s percent, which improved with her usual supplemental nasal cannula oxygen. They placed a c-collar as well. They also dressed the wound on her right forearm. Patient is not on any blood thinners other than an aspirin a day. Movement makes the discomfort worse. There has been no loss of bowel or bladder control.[] (ANMOL TURPIN DO) Review of Systems Review of Systems Constitutional: Denies fever or chills [] Eyes: Denies change in visual acuity, redness, or eye pain [] HENT: Denies nasal congestion or sore throat [] Respiratory: Denies cough or shortness of breath [] Cardiovascular: No chest pain or palpitations[] GI: Denies abdominal pain, nausea, vomiting, bloody stools or diarrhea [] : Denies dysuria or hematuria [] Musculoskeletal: See history of present illness[] Integument: Denies rash or skin lesions [] Neurologic: Denies headache, focal weakness or sensory changes [] Endocrine: Denies polyuria or polydipsia [] All other systems were reviewed and found to be within normal limits, except as documented in this note. (ANMOL TURPIN DO) Allergies Allergies Allergies Coded Allergies Type Severity Reaction Last Updated Verified Penicillins Allergy Intermediate 12/19/18 Yes Sulfa (Sulfonamide Antibiotics) Allergy Intermediate 12/19/18 Yes bacitracin Allergy Intermediate 12/19/18 Yes ciprofloxacin Allergy Intermediate 12/19/18 Yes (ANMOL TURPIN DO) Physical Exam Physical Exam Constitutional: Well developed, well nourished, no acute distress, non-toxic appearance. [] HENT: Normocephalic, atraumatic, bilateral external ears normal, TMs are clear�no blood or fluid. Oropharynx moist, no oral exudates, nose normal. [] Eyes: PERRLA, EOMI, conjunctiva normal, no discharge. [] Neck: In c-collar. Tenderness to palpation upper cervical spine. There is no step-off or crepitus. C-collar was reapplied after evaluation.. [] Cardiovascular:Heart rate regular rhythm, no murmur [] Lungs & Thorax: Bilateral breath sounds clear to auscultation [] Abdomen: Bowel sounds normal, soft, no tenderness, no masses, no pulsatile masses. Pelvis is stable and 3 planes[] Skin: Warm, dry, no erythema, no rash. [] Back: Tenderness in the lumbar region without step-off or crepitus. There is bruising noted over her left hip which she reports is being old. No tenderness over the bruising. No rotational deformity of either hip. No CVA tenderness. [] Extremities: No tenderness, no cyanosis, no clubbing, ROM intact, no edema. [] Neurologic: Alert and oriented X 3, normal motor function, normal sensory function, no focal deficits noted. [] Psychologic: Affect normal, judgement normal, mood normal. [] (ANMOL TURPIN DO) EKG EKG [] (ANMOL TURPIN DO) Radiology/Procedures Radiology/Procedures PROCEDURE: CT HEAD AND CERVICAL SPINE WO Exam: CT head, cervical and lumbar spine without contrast INDICATION: Fall TECHNIQUE: Sequential axial images through the head were obtained without the administration of IV contrast. Comparisons: 01/16/2019 FINDINGS: Head: No focal parenchymal lesion or hemorrhage is identified. There is no midline shift or sulcal effacement. Extensive patchy hypodensity noted within the periventricular white matter stable from prior exam. The ventricular system is within normal limits without compression hydrocephalus. The basal cisterns are well maintained. Soft tissue contusion along the extracranial occipital scalp. The visualized portions of the paranasal sinuses and mastoid air cells are well-pneumatized. No acute fractures. Cervical spine: Vertebral body heights are well-maintained. Grade 1 anterolisthesis of C4 on C5. No fracture through the cervical spine. Multilevel degenerative change noted in the cervical spine with degenerative disc disease greatest at C5-C6. There is moderate severe bilateral neural foraminal stenosis at C5-C6 and mild bilateral neuroforaminal stenosis at C6-C7. 1.1 cm hypoattenuating nodule within the right lobe of the thyroid gland. Lumbar spine: Compression deformity involving the T12 vertebral body superior endplate with fracture lucency noted. No retropulsion is seen. Grade 1 retrolisthesis of L1 on L2, L2 on L3 and L3 on L4. No other fractures are seen. Multilevel degenerative changes in lumbar spine with degenerative disc disease throughout the lumbar spine and bilateral facet arthropathy throughout the lumbar spine. There is moderate to severe neuroforaminal stenosis at L3-L4 on the right and L2-L3 on the left. Visualized paraspinal soft tissues are unremarkable. IMPRESSION: 1. Extracranial soft tissue contusion along the occipital region without underlying osseous or intracranial abnormality. 2. Negative CT C-spine for acute traumatic injury. 3. Acute appearing compression fracture through the superior endplate of T12, with less than 25 percent height loss and no significant retropulsion into the spinal canal.[] (ANMOL TURPIN DO) Radiology/Procedures [address] [address] IMAGING REPORT Signed PATIENT: CRISTIAN GLORIA ACCOUNT: [id number] : 1940 LOCATION: ER AGE: 78 SEX: F EXAM STATUS: REG ER ORD. PHYSICIAN: ANMOL TURPIN DO REASON: fall, head injury, upper C-spine, and lumbar pain PROCEDURE: CT HEAD AND CERVICAL SPINE WO Exam: CT head, cervical and lumbar spine without contrast INDICATION: Fall TECHNIQUE: Sequential axial images through the head were obtained without the administration of IV contrast. Comparisons: 01/16/2019 FINDINGS: Head: No focal parenchymal lesion or hemorrhage is identified. There is no midline shift or sulcal effacement. Extensive patchy hypodensity noted within the periventricular white matter stable from prior exam. The ventricular system is within normal limits without compression hydrocephalus. The basal cisterns are well maintained. Soft tissue contusion along the extracranial occipital scalp. The visualized portions of the paranasal sinuses and mastoid air cells are well-pneumatized. No acute fractures. Cervical spine: Vertebral body heights are well-maintained. Grade 1 anterolisthesis of C4 on C5. No fracture through the cervical spine. Multilevel degenerative change noted in the cervical spine with degenerative disc disease greatest at C5-C6. There is moderate severe bilateral neural foraminal stenosis at C5-C6 and mild bilateral neuroforaminal stenosis at C6-C7. 1.1 cm hypoattenuating nodule within the right lobe of the thyroid gland. Lumbar spine: Compression deformity involving the T12 vertebral body superior endplate with fracture lucency noted. No retropulsion is seen. Grade 1 retrolisthesis of L1 on L2, L2 on L3 and L3 on L4. No other fractures are seen. Multilevel degenerative changes in lumbar spine with degenerative disc disease throughout the lumbar spine and bilateral facet arthropathy throughout the lumbar spine. There is moderate to severe neuroforaminal stenosis at L3-L4 on the right and L2-L3 on the left. Visualized paraspinal soft tissues are unremarkable. IMPRESSION: 1. Extracranial soft tissue contusion along the occipital region without underlying osseous or intracranial abnormality. 2. Negative CT C-spine for acute traumatic injury. 3. Acute appearing compression fracture through the superior endplate of T12, with less than 25 percent height loss and no significant retropulsion into the spinal canal. Exposure: One or more of the following in the visualized dose reduction techniques were utilized for this examination: 1. Automated exposure control 2. Adjustment of the MA and/or KV according to patient size Use of iterative of reconstructive technique Electronically signed by: Rancho Joseph MD (02/04/2019 5:14 PM) [facility] (KELSY ROLON MD) Course & Med Decision Making Course & Med Decision Making Pertinent Labs and Imaging studies reviewed. (See chart for details) ED course: Patient arrived, was placed in bed, and tolerated exam well. She was transported to and from radiology with any complications. After return of the imaging findings, the c-collar was removed, she was able demonstrate full range of motion. No difficulty with the range of motion. At this point patient's daughter/power of machine cutter arrived reports that she has had 9 falls since Friday. Last time something like this happened she had a urinary tract infection. Urinalysis was ordered at that time along with IV NSAID pain medicine. Patient care endorsed to the nighttime physician at 1800 with laboratory testing as well as effects of pain management in progress.[] (ANMOL TURPIN DO) Course & Med Decision Making IMPRESSION: 1. Frequent falls 2. Head injury 3. T12 compression fracture 4. Arthritis 5. COPD 6. Dementia 7. Hypertension Pt. admitted to Dr. Evans for Head injury observation and pain management. (KELSY ROLON MD) Dragon Disclaimer Dragon Disclaimer This electronic medical record was generated, in whole or in part, using a voice recognition dictation system. (ANMOL TURPIN DO) Departure Departure: Disposition: HOME/RESIDENCE PRIOR TO ADM Condition: STABLE Referrals: SCOTT LENTZ (PCP) James Disclaimer This chart was dictated in whole or in part using Voice Recognition software in a busy, high-work load, and often noisy Emergency Department environment. It may contain unintended and wholly unrecognized errors or omissions. (KELSY ROLON MD) ANMOL TURPIN DO Feb 04, 2019 16:32 KELSY ROLON MD Feb 04, 2019 19:29
--- NOTE | 2019-02-04 17:17 | RAD ---
Exam: CT head, cervical and lumbar spine without contrast INDICATION: Fall TECHNIQUE: Sequential axial images through the head were obtained without the administration of IV contrast. Comparisons: 01/16/2019 FINDINGS: Head: No focal parenchymal lesion or hemorrhage is identified. There is no midline shift or sulcal effacement. Extensive patchy hypodensity noted within the periventricular white matter stable from prior exam. The ventricular system is within normal limits without compression hydrocephalus. The basal cisterns are well maintained. Soft tissue contusion along the extracranial occipital scalp. The visualized portions of the paranasal sinuses and mastoid air cells are well-pneumatized. No acute fractures. Cervical spine: Vertebral body heights are well-maintained. Grade 1 anterolisthesis of C4 on C5. No fracture through the cervical spine. Multilevel degenerative change noted in the cervical spine with degenerative disc disease greatest at C5-C6. There is moderate severe bilateral neural foraminal stenosis at C5-C6 and mild bilateral neuroforaminal stenosis at C6-C7. 1.1 cm hypoattenuating nodule within the right lobe of the thyroid gland. Lumbar spine: Compression deformity involving the T12 vertebral body superior endplate with fracture lucency noted. No retropulsion is seen. Grade 1 retrolisthesis of L1 on L2, L2 on L3 and L3 on L4. No other fractures are seen. Multilevel degenerative changes in lumbar spine with degenerative disc disease throughout the lumbar spine and bilateral facet arthropathy throughout the lumbar spine. There is moderate to severe neuroforaminal stenosis at L3-L4 on the right and L2-L3 on the left. Visualized paraspinal soft tissues are unremarkable. IMPRESSION: 1. Extracranial soft tissue contusion along the occipital region without underlying osseous or intracranial abnormality. 2. Negative CT C-spine for acute traumatic injury. 3. Acute appearing compression fracture through the superior endplate of T12, with less than 25 percent height loss and no significant retropulsion into the spinal canal. Exposure: One or more of the following in the visualized dose reduction techniques were utilized for this examination: 1. Automated exposure control 2. Adjustment of the MA and/or KV according to patient size Use of iterative of reconstructive technique Electronically signed by: Rancho Joseph MD (02/04/2019 5:14 PM) [facility]
[2019-02-04] MEDS ORDERED: KETOROLAC 15 MG/ML VIAL. IV ONE (17:45)
[2019-02-04 19:07] LABS: BACTERIA,URINE 0 /HPF (0-FEW); BILIRUBIN,URINE NEG (NEG); CLARITY,URINE CLEAR; COLOR,URINE YELLOW; GLUCOSE,URINE NEG (NEG); NITRITE,URINE NEG (NEG); RBC,URINE OCC /HPF (0-2); UROBILINOGEN,URINE 0.2 mg/dL (0.2 mg/dL)
[2019-02-04] MEDS ORDERED: ACETAMINOPHEN 325 MG TABLET PO PRN (19:45)
[2019-02-04] MEDS ORDERED: ONDANSETRON PF 4 MG/2 ML VIAL. IV PRN (19:45)
[2019-02-04 20:01] LABS: BASO # 0.1 x10^3/uL (0.0-0.2); BASO % 1 % (0-3); EOS # 0.2 x10^3/uL (0.0-0.7); EOS % 2 % (0-3); HEMATOCRIT 33.5 % (36.0-47.0); HEMOGLOBIN 11.3 g/dL (12.0-15.5); LYMPH # 2.2 x10^3/uL (1.0-4.8); LYMPH % 21 % (24-48); MEAN CORPUSCULAR HEMOGLOBIN 31 pg (25-35); MEAN CORPUSCULAR HGB CONC 34 g/dL (31-37); MEAN CORPUSCULAR VOLUME 91 fL (79-100); MONO # 0.9 x10^3/uL (0.0-1.1); MONO % 9 % (0-9); NEUT # 7.1 x10^3uL (1.8-7.7); NEUT % 68 % (31-73); PLATELET COUNT 243 x10^3/uL (140-400); RED BLOOD COUNT 3.69 x10^6/uL (3.50-5.40); RED CELL DISTRIBUTION WIDTH 13.7 % (11.5-14.5); WHITE BLOOD COUNT 10.5 x10^3/uL (4.0-11.0)
[2019-02-04 20:18] LABS: ALBUMIN 3.4 g/dL (3.4-5.0); CALCIUM 8.4 mg/dL (8.5-10.1); CREATININE 1.2 mg/dL (0.6-1.0); DIRECT BILIRUBIN 0.1 mg/dL (0.0-0.2); GFR 43.7; MAGNESIUM 1.8 mg/dL (1.8-2.4); POTASSIUM 3.8 mmol/L (3.5-5.1); TOTAL BILIRUBIN 0.5 mg/dL (0.2-1.0); TOTAL PROTEIN 6.4 g/dL (6.4-8.2)
[2019-02-04 21:46] VITALS: BP 147/80
[2019-02-04] MEDS ORDERED: DOCU-109 PO (23:39)
[2019-02-04] MEDS ORDERED: CEPH500T PO (23:39)
[2019-02-04] MEDS ORDERED: ALBU2.5V5 NEB (23:39)
[2019-02-05] MEDS ORDERED: HYDR-2155 PO (00:15)
[2019-02-05] MEDS ORDERED: IBUP100O25 PO (00:15)
[2019-02-05] MEDS ORDERED: LACT1CAP21 PO (00:15)
[2019-02-05] MEDS ORDERED: ALBU2.5V8 INH (00:15)
[2019-02-05] MEDS ORDERED: VENL75TA PO (00:15)
[2019-02-05] MEDS ORDERED: C.DIFF MED SCREEN BY RX. MC ONE (01:00)
[2019-02-05 01:05] VITALS: BP 139/81
[2019-02-05] MEDS: IPRATRPIUM/ALBUTEROL 0.5/2.5MG 3 ML NEBU. NEB SCH ×3 (04:54→16:28)
[2019-02-05 05:13] VITALS: BP 146/70
[2019-02-05] MEDS ORDERED: dimenhyDRINATE 50 MG TABLET PO PRN (07:00)
[2019-02-05] MEDS ORDERED: NON FORMULARY ITEM (Ipratropium/Albuterol Sulfate (Combivent Respimat Inhal) 1 PUFF) INH PRN (07:00)
[2019-02-05] MEDS ORDERED: ALBUTEROL SULFATE 2.5 MG/3 ML NEBU. NEB PRN (07:45)
[2019-02-05] MEDS ORDERED: NON FORMULARY ITEM (Fluticasone/Salmeterol (Advair 100-50 Diskus) 2 PUFF) IH SCH (09:00)
[2019-02-05] MEDS ORDERED: ALBUTEROL SULFATE 2.5 MG/3 ML NEBU. INH SCH (09:00)
[2019-02-05] MEDS ORDERED: ALBUTEROL SULFATE 2.5 MG/3 ML NEBU. NEB SCH (09:00)
[2019-02-05] MEDS: LACTOBACILLUS RHAMNOSUS GG 1 CAPSULE. PO SCH ×2 (09:13→21:10)
[2019-02-05] MEDS: VENLAFAXINE 100 MG TABLET. PO SCH ×2 (09:13→21:09)
[2019-02-05] MEDS: QUEtiapine 100 MG TABLET. PO SCH ×2 (09:14→21:10)
[2019-02-05] MEDS: lamoTRIgine 100 MG TABLET. PO SCH ×2 (09:14→21:10)
[2019-02-05] MEDS: LISINOPRIL 20 MG TABLET PO SCH (09:14)
[2019-02-05] MEDS: HYDROcodone/APAP 5/325MG 1 TAB TABLET PO PRN ×2 (09:14→21:09)
[2019-02-05] MEDS: ASPIRIN 81 MG TAB.CHEW PO SCH (09:14)
[2019-02-05] MEDS: FUROSEMIDE 20 MG TABLET PO SCH (09:14)
[2019-02-05] MEDS: DOCUSATE SODIUM 100 MG CAPSULE PO SCH ×2 (09:14→21:09)
[2019-02-05] MEDS: LIDOCAINE (700MG/PATCH) PATCH. TD SCH (09:20)
--- NOTE | 2019-02-05 10:12 | HP ---
ADMIT DATE: 02/04/2019 HISTORY OF PRESENT ILLNESS: A 78-year-old female apparently fell again and she has been having problems with it. She was in severe pain. She fractured her back, has a compression fracture. The patient rates the pain 9/10. The patient notes she had upper respiratory oxygen saturation in the 80 percentile range. Otherwise trying to control her pain management. The patient was admitted for severe intractable pain and compression fracture, new onset. PAST MEDICAL HISTORY: Dementia, hypertension, COPD, emphysema, irritable bowel, obesity, urinary tract infection, weakness, unsteadiness, arthritis, depression, anxiety, anemia, clotting problems. IMMUNIZATIONS: For diphtheria, tetanus vaccinations are up-to-date. ALLERGIES: PENICILLIN, SULFUR, BACITRACIN and CIPROFLOXACIN. SOCIAL HISTORY: The patient presently is a nonsmoker, is a full code. Denies alcohol use. Lives in a nursing facility. REVIEW OF SYSTEMS: Outside of her severe mid back pain, she denies chest pain, shortness of breath, headaches, visual changes, blurred vision, double vision. Denies any melena, hematochezia, or hematemesis. She slipped and fell as indicated, hit the back of her head when she was going to the restroom, apparently was at a care assisted care facility where she fell. PHYSICAL EXAMINATION: GENERAL: This is a pleasant white female, in moderate amount of pain. VITAL SIGNS: Blood pressure 146/70, respiratory rate 18, pulse 80, afebrile. NEUROLOGIC: Alert and oriented, baseline for her. She still has some mild confusion. LUNGS: Diminished, but clear. CARDIOVASCULAR: Regular sinus rhythm. ABDOMEN: Soft, nontender. No rebound or guarding. Positive bowel sounds. No hepatosplenomegaly was noted. EXTREMITIES: No clubbing, cyanosis or edema. The patient has marked tenderness to her mid back area. IMAGING: The CT scan of the lumbar spine shows acute fracture at T12 as well as extracranial soft tissue contusion to the back of her head, but no skull or brain injury itself. IMPRESSION AND PLAN: We will continue to monitor the patient accordingly, continue with IV pain medication as well as patches and consider possible vertebroplasty if necessary and pain management of primary source right now and more steady on her feet. Impression is compression fracture, fall at her nursing facility. MAYTE SILVERMAN MD DR: BECKA/brijesh JOB#: [id number] / [id number]
[2019-02-05 11:05] VITALS: BP 104/68
[2019-02-05] MEDS: fentaNYL 25MCG/HR 1 PATCH PATCH TD SCH (11:05)
[2019-02-05] MEDS: BUDESONIDE 0.5 MG/2 ML NEBU NEB SCH ×2 (11:19→21:49)
[2019-02-05] MEDS: CEPHALEXIN 250 MG CAPSULE PO SCH ×3 (12:27→21:10)
[2019-02-05] MEDS: CALCIUM CARB/VIT D3 500/200 TABLET PO SCH ×2 (12:27→17:01)
[2019-02-05 14:54] VITALS: BP 90/55
[2019-02-05] MEDS: IBUPROFEN 200 MG TABLET PO PRN (18:41)
[2019-02-05 19:53] VITALS: BP 121/74
[2019-02-05] MEDS: PATCH REMOVAL. MC SCH (21:00)
[2019-02-05 22:28] VITALS: BP 101/64
[2019-02-06 05:10] VITALS: BP 107/68
[2019-02-06] MEDS: LISINOPRIL 20 MG TABLET PO SCH (09:00)
[2019-02-06] MEDS: LIDOCAINE (700MG/PATCH) PATCH. TD SCH (09:14)
[2019-02-06] MEDS: CALCIUM CARB/VIT D3 500/200 TABLET PO SCH ×2 (09:14→17:12)
[2019-02-06] MEDS: HYDROcodone/APAP 5/325MG 1 TAB TABLET PO PRN ×2 (09:15→17:12)
[2019-02-06] MEDS: ASPIRIN 81 MG TAB.CHEW PO SCH (09:15)
[2019-02-06] MEDS: DOCUSATE SODIUM 100 MG CAPSULE PO SCH ×2 (09:15→21:59)
[2019-02-06] MEDS: CEPHALEXIN 250 MG CAPSULE PO SCH ×3 (09:15→21:58)
[2019-02-06] MEDS: QUEtiapine 100 MG TABLET. PO SCH ×2 (09:15→21:59)
[2019-02-06] MEDS: lamoTRIgine 100 MG TABLET. PO SCH ×2 (09:15→21:59)
[2019-02-06] MEDS: LACTOBACILLUS RHAMNOSUS GG 1 CAPSULE. PO SCH ×2 (09:15→21:59)
[2019-02-06] MEDS: FUROSEMIDE 20 MG TABLET PO SCH (09:15)
[2019-02-06] MEDS: IBUPROFEN 200 MG TABLET PO PRN ×2 (09:16→17:12)
[2019-02-06] MEDS: VENLAFAXINE 100 MG TABLET. PO SCH ×2 (09:16→21:59)
[2019-02-06] MEDS: BUDESONIDE 0.5 MG/2 ML NEBU NEB SCH ×2 (10:35→21:06)
[2019-02-06 10:54] VITALS: BP 100/62
[2019-02-06] MEDS: IV NORMAL SALINE 1,000ML 1,000 ML IV SCH (14:11)
[2019-02-06 14:14] LABS: BASO % 1 % (0-3); EOS # 0.3 x10^3/uL (0.0-0.7); EOS % 6 % (0-3); HEMATOCRIT 35.1 % (36.0-47.0); HEMOGLOBIN 11.5 g/dL (12.0-15.5); LYMPH # 1.4 x10^3/uL (1.0-4.8); LYMPH % 24 % (24-48); MEAN CORPUSCULAR HEMOGLOBIN 30 pg (25-35); MEAN CORPUSCULAR HGB CONC 33 g/dL (31-37); MEAN CORPUSCULAR VOLUME 92 fL (79-100); MONO # 0.5 x10^3/uL (0.0-1.1); MONO % 9 % (0-9); NEUT # 3.7 x10^3uL (1.8-7.7); NEUT % 61 % (31-73); PLATELET COUNT 246 x10^3/uL (140-400); RED BLOOD COUNT 3.82 x10^6/uL (3.50-5.40); RED CELL DISTRIBUTION WIDTH 13.7 % (11.5-14.5); WHITE BLOOD COUNT 6.1 x10^3/uL (4.0-11.0)
[2019-02-06 14:29] LABS: ALBUMIN 3.3 g/dL (3.4-5.0); CALCIUM 8.7 mg/dL (8.5-10.1); CREATININE 1.8 mg/dL (0.6-1.0); GFR 27.4; POTASSIUM 4.4 mmol/L (3.5-5.1); TOTAL BILIRUBIN 0.2 mg/dL (0.2-1.0); TOTAL PROTEIN 6.5 g/dL (6.4-8.2)
[2019-02-06 14:43] VITALS: BP 104/68
--- NOTE | 2019-02-06 18:25 | PN ---
DATE: SUBJECTIVE: The patient is resting fairly comfortably, although she is still having quite a bit of pain, trying to get PT, OT to work with her to see if she is fairly stable on her feet. She seems to be a little bit more alert overall. OBJECTIVE: VITAL SIGNS: Blood pressure 110/70, respiratory rate 18, pulse 70, afebrile. The patient is still on 2 liters at 94%. PLAN: We will continue to monitor her accordingly and make further evaluation. Still receiving some Keflex for bladder infection. We will continue to monitor her and have her monitored for any change in pain relief. She is on a fentanyl patch, Lidoderm patch. Continue to follow up accordingly. IMPRESSION: Compression fracture, severe pain of her lumbar spine. MAYTE SILVERMAN MD DR: BECKA/brijesh JOB#: [id number] / [id number]
[2019-02-06 19:20] VITALS: BP 114/74
[2019-02-06] MEDS: PATCH REMOVAL. MC SCH (21:00)
[2019-02-06 23:28] VITALS: BP 118/72
--- NOTE | 2019-02-07 01:17 | RAD ---
EXAM: VENTILATION/PERFUSION SCINTIGRAPHY. HISTORY: Elevated d-dimer. Assess for pulmonary embolism. FINDINGS: Xe-133 was inhaled and ventilation images were obtained. The patient terminated the study secondary to dyspnea during the washout phase. No clear ventilation defect is identified. Perfusion images were not obtained. COMPARISON: 01/25/2019. IMPRESSION: 1. Incomplete assessment. Only a portion of the ventilation study was completed. No information about the presence or absence of pulmonary embolism was obtained. Recommend a complete study when feasible. Electronically signed by: Omega Vale MD (02/07/2019 1:14 AM) [id number]
[2019-02-07] MEDS: IV NORMAL SALINE 1,000ML 1,000 ML IV SCH ×3 (02:51→14:00)
[2019-02-07 05:53] VITALS: BP 121/73
[2019-02-07] MEDS: LACTOBACILLUS RHAMNOSUS GG 1 CAPSULE. PO SCH ×2 (08:24→20:41)
[2019-02-07] MEDS: HYDROcodone/APAP 5/325MG 1 TAB TABLET PO PRN (08:25)
[2019-02-07] MEDS: IBUPROFEN 200 MG TABLET PO PRN (08:25)
[2019-02-07] MEDS: VENLAFAXINE 100 MG TABLET. PO SCH ×2 (08:26→20:55)
[2019-02-07] MEDS: ASPIRIN 81 MG TAB.CHEW PO SCH (08:26)
[2019-02-07] MEDS: CALCIUM CARB/VIT D3 500/200 TABLET PO SCH ×2 (08:27→17:01)
[2019-02-07] MEDS: FUROSEMIDE 20 MG TABLET PO SCH (08:27)
[2019-02-07] MEDS: DOCUSATE SODIUM 100 MG CAPSULE PO SCH ×2 (08:27→20:41)
[2019-02-07] MEDS: lamoTRIgine 100 MG TABLET. PO SCH ×2 (08:27→20:41)
[2019-02-07] MEDS: LIDOCAINE (700MG/PATCH) PATCH. TD SCH (08:27)
[2019-02-07] MEDS: QUEtiapine 100 MG TABLET. PO SCH ×2 (08:29→20:41)
[2019-02-07] MEDS: LISINOPRIL 20 MG TABLET PO SCH (09:00)
[2019-02-07] MEDS: BUDESONIDE 0.5 MG/2 ML NEBU NEB SCH ×2 (10:35→21:07)
[2019-02-07 11:46] VITALS: BP 108/69
[2019-02-07 15:03] VITALS: BP 136/81
--- NOTE | 2019-02-07 16:35 | PN ---
DATE: SUBJECTIVE: The patient is somewhat less painful. Blood pressure still being modulated and her lisinopril being held. OBJECTIVE: VITAL SIGNS: Blood pressure 120/73, respiratory rate 18, pulse 76, afebrile, 2 liters at 92%. GENERAL: The patient is alert and oriented. LUNGS: Diminished, but clear. CARDIOVASCULAR: Irregularly irregular with an occasional dropped beat. ABDOMEN: Soft, nontender. EXTREMITIES: No clubbing, cyanosis or edema. Still pain upon 11/30, but much improved. She is getting PT, OT and plan is to discharge her tomorrow back to a nursing facility that her insurance approves. MAYTE SILVERMAN MD DR: BECKA/brijesh JOB#: [id number] / [id number]
[2019-02-07 19:15] VITALS: BP 135/79
[2019-02-07] MEDS: PATCH REMOVAL. MC SCH (20:55)
[2019-02-08 06:29] VITALS: BP 143/77
[2019-02-08] MEDS: BUDESONIDE 0.5 MG/2 ML NEBU NEB SCH (08:00)
[2019-02-08] MEDS: LACTOBACILLUS RHAMNOSUS GG 1 CAPSULE. PO SCH (08:15)
[2019-02-08] MEDS: CALCIUM CARB/VIT D3 500/200 TABLET PO SCH (08:15)
[2019-02-08] MEDS: lamoTRIgine 100 MG TABLET. PO SCH (08:15)
[2019-02-08] MEDS: DOCUSATE SODIUM 100 MG CAPSULE PO SCH (08:15)
[2019-02-08] MEDS: FUROSEMIDE 20 MG TABLET PO SCH (08:16)
[2019-02-08] MEDS: ASPIRIN 81 MG TAB.CHEW PO SCH (08:16)
[2019-02-08] MEDS: QUEtiapine 100 MG TABLET. PO SCH (08:16)
[2019-02-08] MEDS: LIDOCAINE (700MG/PATCH) PATCH. TD SCH (08:17)
[2019-02-08] MEDS: fentaNYL 25MCG/HR 1 PATCH PATCH TD SCH (08:17)
[2019-02-08] MEDS ORDERED: fentaNYL 25MCG/HR 1 PATCH PATCH TD SCH (09:00)
[2019-02-08] MEDS: VENLAFAXINE 100 MG TABLET. PO SCH (09:30)
[2019-02-08] MEDS ORDERED: FENT1PAT15 TD (09:36)
[2019-02-08] MEDS ORDERED: HYDR-2155 PO (09:36)
[2019-02-08] MEDS: IBUPROFEN 200 MG TABLET PO PRN (09:41)
[2019-02-08 10:49] VITALS: BP 119/67
--- NOTE | 2019-02-08 16:02 | DS ---
DATE OF DISCHARGE: 02/08/2019 A 78-year-old female came in. She had been falling at the facility that she was living at and had severe pain in her back. X-rays demonstrated a significant compression fracture along with severe degenerative disease. The compression fracture was at T12. She also had changes of L1, 2, 3 and 4 as well. The patient also had a positive D-dimer and scans were performed, nuclear medicine scan, but due to technical reasons, was not able to be completed, but the patient did seem to be breathing well. She is on 2 liters at 95%, blood pressure 140/70, respiratory rate 18, she is afebrile, pulse of 85. The patient otherwise seems to be resting fairly comfortably, making fairly good progress, overall has received PT, OT, pain management of Duragesic patches in the leg. The patient made good progress during the rest of her hospitalization and she was discharged back to the nursing facility for continued PT, OT. IMPRESSION: Compression fracture, osteoporosis, mild dementia, chronic obstructive pulmonary disease with hypoxia, mild protein malnutrition, anemia of chronic disease. We will continue to be monitored carefully, make further evaluation on her as indicated. Regular diet, decreased activity and her diet as tolerated out there at the nursing facility. MAYTE SILVERMAN MD DR: BECKA/brijesh JOB#: [id number] / [id number]
== END 2019-02-08 12:44 | DRG 543 ==
LOC: ER 16:21 → 1 SOUTH 19:30 → ER 21:18
PROVIDERS: ADMIT Family Medicine; ATTEND Family Medicine
DX: M48.54XA Collapsed vertebra, not elsewhere classified, thoracic region, initial encounter for fracture (principal); E44.1 Mild protein-calorie malnutrition; S09.90XA Unspecified injury of head, initial encounter; R29.6 Repeated falls; F03.90 Unspecified dementia, unspecified severity, without behavioral disturbance, psychotic disturbance, mood disturbance, and anxiety; I10 Essential (primary) hypertension; M19.90 Unspecified osteoarthritis, unspecified site; Z86.718 Personal history of other venous thrombosis and embolism; K58.9 Irritable bowel syndrome, unspecified; Z91.81 History of falling; F17.210 Nicotine dependence, cigarettes, uncomplicated; F32.9 Major depressive disorder, single episode, unspecified; F41.9 Anxiety disorder, unspecified; E66.9 Obesity, unspecified; Z68.29 Body mass index [BMI] 29.0-29.9, adult; Z99.81 Dependence on supplemental oxygen; Z88.0 Allergy status to penicillin; Z88.1 Allergy status to other antibiotic agents; Z88.2 Allergy status to sulfonamides; W18.39XA Other fall on same level, initial encounter; Y93.89 Activity, other specified; Y92.89 Other specified places as the place of occurrence of the external cause; Y99.8 Other external cause status; J43.9 Emphysema, unspecified; M81.0 Age-related osteoporosis without current pathological fracture; D63.8 Anemia in other chronic diseases classified elsewhere
CPT/HCPCS: 36415; 51702; 70450; 72125; 72131; 78579; 80048; 80053; 80076; 81001; 82550; 83605; 83735; 84484; 85025; 85379; 85610; 85730; 87641; 93005; 94640; 96374; A9558; J1885; J3010; J7620; J7626; 97530; 99285-25; J7030

== ENCOUNTER 2020-01-01 05:37 | Emergency (ER) | payer MEDICARE, MEDICAID ==
[~2020-01-01] VITALS: Ht 167.6 cm; Wt 75.5 kg
[~2020-01-01 05:37] MED LIST changes: +ALBU2.5V5 NEB; +CEPH500T PO; +DOCU-109 PO; +FENT1PAT15 TD; +HYDR-2155 PO; +LACT1CAP21 PO; -LAMO100T PO; +LAMO100T8 PO; -LAMO200T2 PO; +LAMO200T6 PO; +MULT-445 PO; -MULT1TAB52 PO; +VENL75TA PO
--- NOTE | 2020-01-01 05:46 | PHYS DOC ---
Past History Past Medical History: Arthritis, COPD, Dementia, DVT, Hypertension, IBS, Other Additional Past Medical Histor: frequent falls (KELSY ROLON MD) Past Surgical History: No Surgical History (KELSY ROLON MD) Smoking: Cigarettes Alcohol Use: None Drug Use: None (KELSY ROLON MD) General Adult HPI: HPI: ".. I was up going to the bathroom...and on the way back to my chair.. I got twisted up and... slipped. and fell.. I landed on this Rt. hip..and hit the back of my head... it did not knock me out.. but I was pretty stunned..." Patient is a 79 year old female who presents with above hx and complaints of slip and fall. Pt. localized pain to posterior scalp and has small contusion at this area. Pt. had pain in Rt. hip. Can do straight leg lift. Some pain on loading of Rt. hip. Pt. also has small contusion to Rt. elbow. Pt. denies other injury. Pt a resident of [facility] since 02/08/19. Patient has a past medical history of COPD, bipolar disorder, gait disorder, recurrent falls, generalized muscle deconditioning, anxiety disorder, dementia,. Patient denies any recent changes in meds. Patient is a resident of the pt. Follows with Dr. Silverman. (KELSY ROLON MD) Review of Systems: Review of Systems: Constitutional: Denies fever or chills Eyes: Denies change in visual acuity HENT: Denies nasal congestion or sore throat Respiratory: Denies cough or shortness of breath Cardiovascular: Denies chest pain or edema GI: Denies abdominal pain, nausea, vomiting, bloody stools or diarrhea : Denies dysuria Musculoskeletal: Complaint s of contusions to Rt. Hip, Elbow Integument: Denies rash Neurologic: Complaints of contusion posterior scalp. Mild headache. Denies any change from base line focal weakness or sensory changes Endocrine: Denies polyuria or polydipsia Lymphatic: Denies swollen glands Psychiatric: Denies depression or anxiety (KELSY ROLON MD) Heart Score: Risk Factors: Risk Factors: DM, Current or recent (<one month) smoker, HTN, HLP, family history of CAD, obesity. Risk Scores: Score 0 - 3: 2.5% MACE over next 6 weeks - Discharge Home Score 4 - 6: 20.3% MACE over next 6 weeks - Admit for Clinical Observation Score 7 - 10: 72.7% MACE over next 6 weeks - Early Invasive Strategies (KELSY ROLON MD) Family History: Family History: Non-contributory (KELSY ROLON MD) Current Medications: Current Meds: See Nursing for home meds (KELSY ROLON MD) Allergies: Allergies: Allergies Coded Allergies Type Severity Reaction Last Updated Verified Penicillins Allergy Intermediate 12/19/18 Yes Sulfa (Sulfonamide Antibiotics) Allergy Intermediate 12/19/18 Yes bacitracin Allergy Intermediate 12/19/18 Yes ciprofloxacin Allergy Intermediate 12/19/18 Yes (KELSY ROLON MD) Physical Exam: PE: Constitutional: moderate acute distress, non-toxic appearance. [] HENT: Normocephalic, contusion posterior scalp, bilateral external ears normal, oropharynx moist, no oral exudates, nose normal. [] Eyes: PERRLA, EOMI, conjunctiva normal, no discharge. [] Neck: Normal range of motion, mild tenderness, supple, no stridor. [] Cardiovascular:Heart rate regular rhythm, no murmur []PMI to Lt. Lungs & Thorax: Bilateral breath sounds equal at apexes with scattered wheezes on auscultation [] Abdomen: Bowel sounds normal, soft, no tenderness, no masses, no pulsatile masses. [] Skin: Warm, dry, no erythema, no rash. [] Back: No tenderness, no CVA tenderness. [] Extremities: Contusion tenderness Rt Hip and Rt. elbow.no cyanosis, no clubbing, ROM intact but painful in Rt. elbow and hip, no edema. [] Neurologic: Alert and oriented X 3, normal motor function, normal sensory function, no focal deficits noted. [] Psychologic: Affect anxious, judgement normal, mood normal. [] (KELSY ROLON MD) EKG: EKG: [] (KELSY ROLON MD) Radiology/Procedures: Radiology/Procedures: [address] [address] IMAGING REPORT Signed PATIENT: CRISTIAN GLORIA ACCOUNT: [id number] : 1940 LOCATION: ER AGE: 79 SEX: F EXAM STATUS: REG ER ORD. PHYSICIAN: KELSY ROLON MD REASON: fall PROCEDURE: HIP RIGHT 2V WITH PELVIS HIP RIGHT 2V WITH PELVIS DATE: 01/01/2020 5:46 AM INDICATION: fall COMPARISON: None. FINDINGS: Bones: There is no evidence of acute fracture or dislocation. Joints: Hip joints are congruent. Mild degenerative changes of the hips, SI joints, and symphysis pubis Miscellaneous: Large colonic stool burden IMPRESSION: No evidence of acute fracture. Electronically signed by: Gerson Davila MD (01/01/2020 6:54 AM) [facility] [[email or web address]] DICTATED AND SIGNED BY: GERSON DAVILA MD DATE: 01/01/20 0654 CC: MAYTE SILVERMAN MD; KELSY ROLON MD; MAYTE HARPER DO ~ [place] [address] IMAGING REPORT Signed PATIENT: CRISTIAN GLORIA ACCOUNT: [id number] : 1940 LOCATION: ER AGE: 79 SEX: F EXAM STATUS: PRE ER ORD. PHYSICIAN: KELSY ROLON MD REASON: Fall, struck head on floor, headache, neck pain PROCEDURE: CT HEAD AND CERVICAL SPINE WO CT HEAD AND CERVICAL SPINE WO Date: 01/01/2020 5:46 AM Clinical Indication: Fall, struck head on floor, headache, neck pain Comparison: 02/04/2019. Technique: 5 mm axial tomographic images were obtained of the head without contrast. These were viewed on brain and bone windows. Noncontrast CT of the cervical spine was performed. Sagittal and coronal reformats were performed and evaluated. One or more of the following dose reduction techniques were utilized: Automated exposure control (AEC), Adjustment of mA and/or kV according to patient size, Use of iterative reconstruction technique such as ASiR, CT scan done according to ALARA and image gently/image wisely HEAD FINDINGS: Mild generalized cerebral and cerebellar volume loss. Extensive nonspecific periventricular hypoattenuation, most commonly seen with chronic small vessel ischemic disease. No intra- or extra-axial mass or fluid collection. No acute hemorrhage. The ventricles are normal in size, shape, and morphology. The shahid-white matter junction is normal. The basilar cisterns are patent. The visualized paranasal sinuses are normal. The visualized portions of the orbits and globes are normal. The mastoid air cells are clear. No aggressive osseous lesion or fracture. CERVICAL SPINE FINDINGS: Reversal of the cervical lordosis centered at C5-6. Trace anterolisthesis at C4-5. No acute fracture. No aggressive lytic or blastic osseous lesions. Multilevel degenerative disc space height loss, worst and severe at C5-6 and C6-7. Multilevel mild spinal canal stenosis secondary to disc protrusions and marginal osteophytes. Multilevel mild neuroforaminal narrowing secondary to uncovertebral arthrosis. Multilevel mild facet arthrosis. The thyroid gland is stable. No cervical lymphadenopathy. Bilateral carotid atherosclerosis. The visualized aerodigestive tract is normal. Mild biapical subpleural fibrosis. IMPRESSION: 1. No acute intracranial process. 2. No acute cervical spine fracture. Electronically signed by: Gerson Davila MD (01/01/2020 6:29 AM) [facility] [[email or web address]] DICTATED AND SIGNED BY: GERSON DAVILA MD DATE: 01/01/20628 CC: MAYTE SILVERMAN MD; KELSY ROLON MD; MAYTE HARPER DO ~ [][place] [address] IMAGING REPORT Signed PATIENT: CRISTIAN GLORIA ACCOUNT: [id number] : 1940 LOCATION: ER AGE: 79 SEX: F EXAM STATUS: REG ER ORD. PHYSICIAN: KELSY ROLON MD REASON: fall PROCEDURE: CHEST PA & LATERAL CHEST PA LATERAL INDICATION: Reason: fall / Spl. Instructions: / History: . COMPARISON STUDY: 01/25/2019. FINDINGS: Lungs: Normal lung volume. No pulmonary mass or consolidation. The tracheobronchial tree and hilar structures are normal. Pleura: No pleural effusion or pneumothorax. Heart and Mediastinum: The cardiomediastinal silhouette is normal. Tortuous atherosclerotic aorta. IMPRESSION: No acute cardiopulmonary process. Electronically signed by: Gerson Davila MD (01/01/2020 6:53 AM) [facility] [[email or web address]] DICTATED AND SIGNED BY: GERSON DAVILA MD DATE: 01/01/20 0653 CC: MAYTE SILVERMAN MD; KELSY ROLON MD; MAYTE HARPER DO ~ (KELSY ROLON MD) Radiology/Procedures: [place] [address] IMAGING REPORT Signed PATIENT: CRISTIAN GLORIA ACCOUNT: [id number] : 1940 LOCATION: ER AGE: 79 SEX: F EXAM STATUS: PRE ER ORD. PHYSICIAN: KELSY ROLON MD REASON: Fall, struck head on floor, headache, neck pain PROCEDURE: CT HEAD AND CERVICAL SPINE WO CT HEAD AND CERVICAL SPINE WO Date: 01/01/2020 5:46 AM Clinical Indication: Fall, struck head on floor, headache, neck pain Comparison: 02/04/2019. Technique: 5 mm axial tomographic images were obtained of the head without contrast. These were viewed on brain and bone windows. Noncontrast CT of the cervical spine was performed. Sagittal and coronal reformats were performed and evaluated. One or more of the following dose reduction techniques were utilized: Automated exposure control (AEC), Adjustment of mA and/or kV according to patient size, Use of iterative reconstruction technique such as ASiR, CT scan done according to ALARA and image gently/image wisely HEAD FINDINGS: Mild generalized cerebral and cerebellar volume loss. Extensive nonspecific periventricular hypoattenuation, most commonly seen with chronic small vessel ischemic disease. No intra- or extra-axial mass or fluid collection. No acute hemorrhage. The ventricles are normal in size, shape, and morphology. The shahid-white matter junction is normal. The basilar cisterns are patent. The visualized paranasal sinuses are normal. The visualized portions of the orbits and globes are normal. The mastoid air cells are clear. No aggressive osseous lesion or fracture. CERVICAL SPINE FINDINGS: Reversal of the cervical lordosis centered at C5-6. Trace anterolisthesis at C4-5. No acute fracture. No aggressive lytic or blastic osseous lesions. Multilevel degenerative disc space height loss, worst and severe at C5-6 and C6-7. Multilevel mild spinal canal stenosis secondary to disc protrusions and marginal osteophytes. Multilevel mild neuroforaminal narrowing secondary to uncovertebral arthrosis. Multilevel mild facet arthrosis. The thyroid gland is stable. No cervical lymphadenopathy. Bilateral carotid atherosclerosis. The visualized aerodigestive tract is normal. Mild biapical subpleural fibrosis. IMPRESSION: 1. No acute intracranial process. 2. No acute cervical spine fracture. Electronically signed by: Gerson Davila MD (01/01/2020 6:29 AM) [facility] [[email or web address]] DICTATED AND SIGNED BY: GERSON DAVILA MD DATE: 01/01/20628 CC: MAYTE SILVERMAN MD; KELSY ROLON MD; MAYTE HARPER DO ~ [address] [address] IMAGING REPORT Signed PATIENT: CRISTIAN GLORIA ACCOUNT: [id number] : 1940 LOCATION: ER AGE: 79 SEX: F EXAM STATUS: REG ER ORD. PHYSICIAN: KELSY ROLON MD REASON: fall PROCEDURE: HIP RIGHT 2V WITH PELVIS HIP RIGHT 2V WITH PELVIS DATE: 01/01/2020 5:46 AM INDICATION: fall COMPARISON: None. FINDINGS: Bones: There is no evidence of acute fracture or dislocation. Joints: Hip joints are congruent. Mild degenerative changes of the hips, SI joints, and symphysis pubis Miscellaneous: Large colonic stool burden IMPRESSION: No evidence of acute fracture. Electronically signed by: Gerson Davila MD (01/01/2020 6:54 AM) [facility] [[email or web address]] DICTATED AND SIGNED BY: GERSON DAVILA MD DATE: 01/01/20653 CC: MAYTE SILVERMAN MD; KELSY ROLON MD; MAYTE HARPER DO ~ [address] [address] IMAGING REPORT Signed PATIENT: CRISTIAN GLORIA ACCOUNT: [id number] : 1940 LOCATION: ER AGE: 79 SEX: F EXAM STATUS: REG ER ORD. PHYSICIAN: KELSY ROLON MD REASON: fall PROCEDURE: ELBOW LEFT 3V ELBOW LEFT 3V DATE: 01/01/2020 5:46 AM INDICATION: Reason: fall / Spl. Instructions: / History: COMPARISON: None. FINDINGS: Bones: There is no evidence of acute fracture or dislocation. Joints: Mild degenerative changes of the elbow joint. There is no joint effusion. Miscellaneous: None. IMPRESSION: No evidence of acute fracture. Electronically signed by: Gerson Davila MD (01/01/2020 6:53 AM) [facility] [[email or web address]] DICTATED AND SIGNED BY: GERSON DAVILA MD DATE: 01/01/20652 CC: MAYTE SILVERMAN MD; KELSY ROLON MD; MAYTE HARPER DO ~ [place] [address] IMAGING REPORT Signed PATIENT: CRISTIAN GLORIA ACCOUNT: [id number] : 1940 LOCATION: ER AGE: 79 SEX: F EXAM STATUS: REG ER ORD. PHYSICIAN: KELSY ROLON MD REASON: fall PROCEDURE: CHEST PA & LATERAL CHEST PA LATERAL INDICATION: Reason: fall / Spl. Instructions: / History: . COMPARISON STUDY: 01/25/2019. FINDINGS: Lungs: Normal lung volume. No pulmonary mass or consolidation. The tracheobronchial tree and hilar structures are normal. Pleura: No pleural effusion or pneumothorax. Heart and Mediastinum: The cardiomediastinal silhouette is normal. Tortuous atherosclerotic aorta. IMPRESSION: No acute cardiopulmonary process. Electronically signed by: Gerson Davila MD (01/01/2020 6:53 AM) [facility] [[email or web address]] DICTATED AND SIGNED BY: GERSON DAVILA MD DATE: 01/01/20652 CC: MAYTE SILVERMAN MD; KELSY ROLON MD; MAYTE HARPER DO ~ (MAYTE HARPER DO) Course & Med Decision Making: Course & Med Decision Making Pertinent Labs and Imaging studies reviewed. (See chart for details) Pt. checked out to Dr. Harper. X rays pending at shift change. He will make disposition. Impression: 1.Slip and Fall 2.Head Injury 3.Contusions Rt. Elbow and Rt. Hip [] (KELSY ROLON MD) Course & Med Decision Making Patient is a 78-year-old female who fell this morning, landed on her right hip, hit her left elbow on the ground. Patient do have some superficial skin abrasion on the left elbow area, she can move her left elbow without any p roblem, patient initially complained of some pain in her right pelvic area, however she can walk and move her right hip without any pain at this time. X- ray of her left elbow and right hip did not show any fracture. Patient did hit the back of her head on the ground, CT scan her head and her C-spine did not show any acute problem. Patient was not up-to-date on her tetanus vaccination, she was given a booster tetanus vaccination here today. Patient will be discharged back to the [facility]. (MAYTE HARPER DO) Lumafit Disclaimer: Lumafit Disclaimer: This electronic medical record was generated, in whole or in part, using a voice recognition dictation system. (KELSY ROLON MD) Departure Departure: Impression: Primary Impression: Head injury Additional Impressions: Left elbow contusion Right hip pain Disposition: 01 HOME/RESIDENCE PRIOR TO ADM Condition: STABLE Referrals: MAYTE SILVERMAN MD (PCP) please follow up with your doctor as needed Patient Instructions: Contusion, Head Injury, Adult Additional Instructions: Thank you for visiting our Emergency Department. We appreciate you trusting us with your care. If any additional problems come up don't hesitate to return to visit us. Please follow up with your primary care provider so they can plan additional care if needed and know about the problem that you had. If symptoms worsen come back to the Emergency Department. Any concerning symptoms that start such as chest pain, shortness of air, weakness or numbness on one side of the body, running high fevers or any other concerning symptoms return to the ER. Justification of Admission: Justification of Admission: Justification of Admission Dx: N/A (MAYTE HARPER DO) KELSY ROLON MD Jan 01, 2020 05:46 MAYTE HARPER DO Jan 01, 2020 07:06
[2020-01-01 05:51] VITALS: BP 138/67
[2020-01-01] MEDS ORDERED: ACETAMINOPHEN 500 MG TABLET PO ONE (06:00)
--- NOTE | 2020-01-01 06:32 | RAD ---
CT HEAD AND CERVICAL SPINE WO Date: 01/01/2020 5:46 AM Clinical Indication: Fall, struck head on floor, headache, neck pain Comparison: 02/04/2019. Technique: 5 mm axial tomographic images were obtained of the head without contrast. These were viewed on brain and bone windows. Noncontrast CT of the cervical spine was performed. Sagittal and coronal reformats were performed and evaluated. One or more of the following dose reduction techniques were utilized: Automated exposure control (AEC), Adjustment of mA and/or kV according to patient size, Use of iterative reconstruction technique such as ASiR, CT scan done according to ALARA and image gently/image wisely HEAD FINDINGS: Mild generalized cerebral and cerebellar volume loss. Extensive nonspecific periventricular hypoattenuation, most commonly seen with chronic small vessel ischemic disease. No intra- or extra-axial mass or fluid collection. No acute hemorrhage. The ventricles are normal in size, shape, and morphology. The shahid-white matter junction is normal. The basilar cisterns are patent. The visualized paranasal sinuses are normal. The visualized portions of the orbits and globes are normal. The mastoid air cells are clear. No aggressive osseous lesion or fracture. CERVICAL SPINE FINDINGS: Reversal of the cervical lordosis centered at C5-6. Trace anterolisthesis at C4-5. No acute fracture. No aggressive lytic or blastic osseous lesions. Multilevel degenerative disc space height loss, worst and severe at C5-6 and C6-7. Multilevel mild spinal canal stenosis secondary to disc protrusions and marginal osteophytes. Multilevel mild neuroforaminal narrowing secondary to uncovertebral arthrosis. Multilevel mild facet arthrosis. The thyroid gland is stable. No cervical lymphadenopathy. Bilateral carotid atherosclerosis. The visualized aerodigestive tract is normal. Mild biapical subpleural fibrosis. IMPRESSION: 1. No acute intracranial process. 2. No acute cervical spine fracture. Electronically signed by: Giancarlo Davila MD (01/01/2020 6:29 AM) [facility]
--- NOTE | 2020-01-01 06:55 | RAD ---
CHEST PA LATERAL INDICATION: Reason: fall / Spl. Instructions: / History: . COMPARISON STUDY: 01/25/2019. FINDINGS: Lungs: Normal lung volume. No pulmonary mass or consolidation. The tracheobronchial tree and hilar structures are normal. Pleura: No pleural effusion or pneumothorax. Heart and Mediastinum: The cardiomediastinal silhouette is normal. Tortuous atherosclerotic aorta. IMPRESSION: No acute cardiopulmonary process. Electronically signed by: Giancarlo Davila MD (01/01/2020 6:53 AM) [facility]
--- NOTE | 2020-01-01 06:56 | RAD ---
ELBOW LEFT 3V DATE: 01/01/2020 5:46 AM INDICATION: Reason: fall / Spl. Instructions: / History: COMPARISON: None. FINDINGS: Bones: There is no evidence of acute fracture or dislocation. Joints: Mild degenerative changes of the elbow joint. There is no joint effusion. Miscellaneous: None. IMPRESSION: No evidence of acute fracture. Electronically signed by: Giancarlo Davila MD (01/01/2020 6:53 AM) [facility]
--- NOTE | 2020-01-01 06:57 | RAD ---
HIP RIGHT 2V WITH PELVIS DATE: 01/01/2020 5:46 AM INDICATION: fall COMPARISON: None. FINDINGS: Bones: There is no evidence of acute fracture or dislocation. Joints: Hip joints are congruent. Mild degenerative changes of the hips, SI joints, and symphysis pubis Miscellaneous: Large colonic stool burden IMPRESSION: No evidence of acute fracture. Electronically signed by: Giancarlo Davila MD (01/01/2020 6:54 AM) [facility]
[2020-01-01] MEDS ORDERED: DIPH,PERTUSS(ACELL),TET VAC/PF 0.5 ML SYRINGE. VAX IM ONE (07:45)
== END 2020-01-01 08:51 | disposition home or self-care (01) ==
LOC: ER 05:37
DX: S70.01XA Contusion of right hip, initial encounter (principal); S50.01XA Contusion of right elbow, initial encounter; S00.03XA Contusion of scalp, initial encounter; M19.90 Unspecified osteoarthritis, unspecified site; J44.9 Chronic obstructive pulmonary disease, unspecified; F03.90 Unspecified dementia, unspecified severity, without behavioral disturbance, psychotic disturbance, mood disturbance, and anxiety; K58.9 Irritable bowel syndrome, unspecified; I10 Essential (primary) hypertension; F17.210 Nicotine dependence, cigarettes, uncomplicated; Z86.718 Personal history of other venous thrombosis and embolism; Z88.0 Allergy status to penicillin; Z88.1 Allergy status to other antibiotic agents; Z88.2 Allergy status to sulfonamides; W01.0XXA Fall on same level from slipping, tripping and stumbling without subsequent striking against object, initial encounter; Y93.89 Activity, other specified; Y92.89 Other specified places as the place of occurrence of the external cause; Y99.8 Other external cause status
CPT/HCPCS: 70450; 71046; 72125; 73080; 73502; 90471; 90715; 99284-25; 99285-25

== ENCOUNTER 2020-01-16 12:31 | Emergency (ER) | payer MEDICARE, MEDICAID ==
[~2020-01-16] VITALS: Ht 167.6 cm; Wt 74.6 kg
--- NOTE | 2020-01-16 12:47 | EKG ---
[address] [address] Test Date: 2020-01-16 Test Time: 12:36:35 Pat Name: CRISTIAN GLORIA Department: Room: Gender: F Process Machine Operator: : 1940 Requested By: DEVON WILSON Order Number: [id number] Reading MD: Measurements Intervals Index Rate: 94 P: 41 FL: 162 QRS: -50 QRSD: 78 T: 61 QT: 340 QTc: 430 Interpretive Statements SINUS RHYTHM ABNORMAL LEFT AXIS DEVIATION ABNORMAL ECG RI6.02 No previous ECG available for comparison
[2020-01-16 13:00] LABS: BASO # 0.2 x10^3/uL (0.0-0.2); BASO % 1 % (0-3); EOS % 0 % (0-3); HEMATOCRIT 38.1 % (36.0-47.0); HEMOGLOBIN 12.6 g/dL (12.0-15.5); LYMPH # 1.7 x10^3/uL (1.0-4.8); LYMPH % 13 % (24-48); MEAN CORPUSCULAR HEMOGLOBIN 30 pg (25-35); MEAN CORPUSCULAR HGB CONC 33 g/dL (31-37); MEAN CORPUSCULAR VOLUME 90 fL (79-100); MONO # 0.8 x10^3/uL (0.0-1.1); MONO % 6 % (0-9); NEUT # 10.3 x10^3uL (1.8-7.7); NEUT % 79 % (31-73); PLATELET COUNT 268 x10^3/uL (140-400); RED BLOOD COUNT 4.24 x10^6/uL (3.50-5.40); RED CELL DISTRIBUTION WIDTH 14.4 % (11.5-14.5); WHITE BLOOD COUNT 13.1 x10^3/uL (4.0-11.0)
[2020-01-16 13:09] LABS: CALCIUM 9.3 mg/dL (8.5-10.1); CREATININE 1.4 mg/dL (0.6-1.0); GFR 36.5; POTASSIUM 3.7 mmol/L (3.5-5.1)
--- NOTE | 2020-01-16 13:09 | RAD ---
EXAM: Chest, single view. HISTORY: Chest pain. COMPARISON: 01/01/2020 FINDINGS: A frontal view of the chest is obtained. There is no infiltrate, pleural effusion or pneumothorax. There is a stable prominent cardiac silhouette. IMPRESSION: No acute pulmonary finding. Electronically signed by: Ana Kern MD (01/16/2020 1:06 PM) [id number]
[2020-01-16 13:21] LABS: ALBUMIN 3.2 g/dL (3.4-5.0); ALBUMIN/GLOBULIN RATIO 0.9 (1.0-1.7); TOTAL BILIRUBIN 0.5 mg/dL (0.2-1.0); TOTAL PROTEIN 6.9 g/dL (6.4-8.2)
[2020-01-16 13:27] VITALS: BP 110/52
--- NOTE | 2020-01-16 13:28 | PHYS DOC ---
Past History Past Medical History: Arthritis, COPD, Dementia, DVT, Hypertension, IBS, Other Additional Past Medical Histor: frequent falls Past Surgical History: Other Additional Past Surgical Histo: R HIP Smoking: Cigarettes Alcohol Use: Rarely Drug Use: None General Adult EDM: Chief Complaint: CHEST PAIN HPI: HPI: Patient is a 79-year-old female with dementia who resides in a senior care presents today via EMS secondary to chest pain. Patient was given an aspirin and 2 nitro prior to arrival here. On arrival here, patient does not recall having chest pain. She is chest pain-free at this time. She denies any nausea or diaphoresis. She does state that she thinks she has had something like this in the past. Today, the pain started several hours prior to arrival. She says that she has pain often however it tends to go away. [] Review of Systems: Review of Systems: Review of systems is unobtainable secondary to dementia Heart Score: HEART Score for Chest Pain: HEART Score for Chest Pain Response (Comments) Value History Slighlty/Non-Suspicious 0 ECG Normal 0 Age > 65 2 Risk Factors 1 or 2 Risk Factors 1 Troponin < Normal Limit 0 Total 3 Risk Factors: Risk Factors: DM, Current or recent (<one month) smoker, HTN, HLP, family history of CAD, obesity. Risk Scores: Score 0 - 3: 2.5% MACE over next 6 weeks - Discharge Home Score 4 - 6: 20.3% MACE over next 6 weeks - Admit for Clinical Observation Score 7 - 10: 72.7% MACE over next 6 weeks - Early Invasive Strategies Allergies: Allergies: Allergies Coded Allergies Type Severity Reaction Last Updated Verified Penicillins Allergy Intermediate 12/19/18 Yes Sulfa (Sulfonamide Antibiotics) Allergy Intermediate 12/19/18 Yes bacitracin Allergy Intermediate 12/19/18 Yes ciprofloxacin Allergy Intermediate 12/19/18 Yes Physical Exam: PE: Constitutional: Well developed, well nourished, no acute distress, non-toxic appearance. [] HENT: Normocephalic, atraumatic, bilateral external ears normal, oropharynx moist, no oral exudates, nose normal. [] Eyes: PERRLA, EOMI, conjunctiva normal, no discharge. [] Neck: Normal range of motion, no tenderness, supple, no stridor. [] Cardiovascular:Heart rate regular rhythm, no murmur [] Lungs & Thorax: Bilateral breath sounds clear to auscultation [] Abdomen: Bowel sounds normal, soft, no tenderness, no masses, no pulsatile masses. [] Skin: Warm, dry, no erythema, no rash. [] Back: No tenderness, no CVA tenderness. [] Extremities: No tenderness, no cyanosis, no clubbing, ROM intact, no edema. [] Neurologic: Alert and oriented X 3, normal motor function, normal sensory function, no focal deficits noted. [] Psychologic: Affect normal, judgement normal, mood normal. [] Current Patient Data: Labs: Laboratory Tests Test 01/16/20 12:40 White Blood Count 13.1 x10^3/uL (4.0-11.0) H Red Blood Count 4.24 x10^6/uL (3.50-5.40) Hemoglobin 12.6 g/dL (12.0-15.5) Hematocrit 38.1 % (36.0-47.0) Mean Corpuscular Volume 90 fL (79-100) Mean Corpuscular Hemoglobin 30 pg (25-35) Mean Corpuscular Hemoglobin Concent 33 g/dL (31-37) Red Cell Distribution Width 14.4 % (11.5-14.5) Platelet Count 268 x10^3/uL (140-400) Neutrophils (%) (Auto) 79 % (31-73) H Lymphocytes (%) (Auto) 13 % (24-48) L Monocytes (%) (Auto) 6 % (0-9) Eosinophils (%) (Auto) 0 % (0-3) Basophils (%) (Auto) 1 % (0-3) Neutrophils # (Auto) 10.3 x10^3uL (1.8-7.7) H Lymphocytes # (Auto) 1.7 x10^3/uL (1.0-4.8) Monocytes # (Auto) 0.8 x10^3/uL (0.0-1.1) Eosinophils # (Auto) 0.0 x10^3/uL (0.0-0.7) Basophils # (Auto) 0.2 x10^3/uL (0.0-0.2) Sodium Level 139 mmol/L (136-145) Potassium Level 3.7 mmol/L (3.5-5.1) Chloride Level 99 mmol/L (98-107) Carbon Dioxide Level 32 mmol/L (21-32) Anion Gap 8 (6-14) Blood Urea Nitrogen 17 mg/dL (7-20) Creatinine 1.4 mg/dL (0.6-1.0) H Estimated GFR (Cockcroft-Gault) 36.5 BUN/Creatinine Ratio 12 (6-20) Glucose Level 135 mg/dL (70-99) H Calcium Level 9.3 mg/dL (8.5-10.1) Total Bilirubin 0.5 mg/dL (0.2-1.0) Aspartate Amino Transferase (AST) 16 U/L (15-37) Alanine Aminotransferase (ALT) 17 U/L (14-59) Alkaline Phosphatase 68 U/L (46-116) Troponin I Quantitative < 0.017 ng/mL (0-0.055) FZ-Mni-P-Type Natriuretic Peptide 921 pg/mL (0-449) H Total Protein 6.9 g/dL (6.4-8.2) Albumin 3.2 g/dL (3.4-5.0) L Albumin/Globulin Ratio 0.9 (1.0-1.7) L Vital Signs: Vital Signs Date Time Temp Pulse Resp B/P (MAP) Pulse Ox O2 Delivery O2 Flow Rate FiO2 01/16/20 12:41 98.2 88 14 121/67 (85) 92 Nasal Cannula 2.0 EKG: EKG: [] Radiology/Procedures: Radiology/Procedures: [] Impressions: REASON: chest pain PROCEDURE: CHEST AP ONLY EXAM: Chest, single view. HISTORY: Chest pain. COMPARISON: 01/01/2020 FINDINGS: A frontal view of the chest is obtained. There is no infiltrate, pleural effusion or pneumothorax. There is a stable prominent cardiac silhouette. IMPRESSION: No acute pulmonary finding. Course & Med Decision Making: Course & Med Decision Making Pertinent Labs and Imaging studies reviewed. (See chart for details) [ED course: Evaluation reveals a 79-year-old demented female from senior care. Her initial chest pain work-up was completely normal including labs EKG and chest x-ray. I do not believe the patient needs to stay for further e valuation.] Dragon Disclaimer: Dragon Disclaimer: This electronic medical record was generated, in whole or in part, using a voice recognition dictation system. Departure Departure: Impression: Primary Impression: Chest pain Qualified Codes: R07.9 - Chest pain, unspecified Disposition: HOME/RESIDENCE PRIOR TO ADM Condition: STABLE Referrals: MAYTE SILVERMAN MD (PCP) Patient Instructions: Chest Pain (Nonspecific) Additional Instructions: Return to the emergency department with any new or concerning symptoms Justification of Admission: Justification of Admission: Justification of Admission Dx: No DEVON WILSON DO Jan 16, 2020 13:28
== END 2020-01-16 13:39 | disposition home or self-care (01) ==
LOC: ER 12:31
DX: R07.9 Chest pain, unspecified (principal); M19.90 Unspecified osteoarthritis, unspecified site; J44.9 Chronic obstructive pulmonary disease, unspecified; F03.90 Unspecified dementia, unspecified severity, without behavioral disturbance, psychotic disturbance, mood disturbance, and anxiety; I10 Essential (primary) hypertension; K58.9 Irritable bowel syndrome, unspecified; F17.210 Nicotine dependence, cigarettes, uncomplicated; R29.6 Repeated falls; Z86.718 Personal history of other venous thrombosis and embolism; Z88.0 Allergy status to penicillin; Z88.2 Allergy status to sulfonamides; Z88.1 Allergy status to other antibiotic agents
CPT/HCPCS: 36415; 71045; 80053; 83880; 84484; 85025; 93005; 99285

== ENCOUNTER 2020-02-03 07:43 | Emergency (ER) | payer MEDICARE, MEDICAID ==
[~2020-02-03] VITALS: Ht 167.6 cm; Wt 74.6 kg
--- NOTE | 2020-02-03 07:50 | PHYS DOC ---
Past History Past Medical History: Arthritis, COPD, Dementia, DVT, Hypertension, IBS, Other Additional Past Medical Histor: frequent falls Past Surgical History: Other Additional Past Surgical Histo: R HIP Smoking: Cigarettes Alcohol Use: Rarely Drug Use: None General Adult HPI: HPI: 79-year-old female past medical history significant for dementia with frequent falls, hypertension, COPD on 2L NC, gerd, presents to the ed from NH s/p unwitnessed fall, c/o right shoulder, right hip pain and C6/7 right sided neck pain. Pt states she tripped on a rug and fell backwards "I always fall backwards," hitting her head on a chair, no LOC, takes aspirin daily. Known h/o frequent falls - rn saw pt at [facility] ago. Tetanus updated in ed 12/2019, was seen in ed 2 weeks ago for chest pain. EMS reports pt was upper 80's on ra, is noncompliant with 2L NC. ROS: Denies any associated fever, chills, headache, neck stiffness, diaphoresis, sore throat, cough, chest pain or pressure, dyspnea, orthopnea, hemoptysis, nausea, vomiting, diarrhea, abdominal pain, saddle anesthesia, urine or bowel retention or incontinence, leg swelling, rash, hemoptysis, sensory or motor deficits. Allergies: Allergies: Allergies Coded Allergies Type Severity Reaction Last Updated Verified Penicillins Allergy Intermediate 12/19/18 Yes Sulfa (Sulfonamide Antibiotics) Allergy Intermediate 12/19/18 Yes bacitracin Allergy Intermediate 12/19/18 Yes ciprofloxacin Allergy Intermediate 12/19/18 Yes Physical Exam: PE: Constitutional: Well developed, well nourished, no acute distress, non-toxic appearance. [] HENT: large right posterior occiput bleeding hematoma -5x5cm w/2cm stellate laceration, bilateral external ears normal, oropharynx moist, no oral exudates, nose normal, right paraspinal C6/7 neck pain Eyes: PERRLA, EOMI, conjunctiva normal, no discharge. [] Neck: Normal range of motion, no tenderness, supple, no stridor, midline vertical neck scar Cardiovascular:Heart rate regular rhythm, no murmur [] Lungs & Thorax: Bilateral breath sounds clear to auscultation [] Abdomen: Bowel sounds normal, soft, no tenderness, no masses, no pulsatile masses, no hip ttp or unstable pelvis Skin: Warm, dry, no erythema, no rash. [] Back: No tenderness, no CVA tenderness. [] right posterior shoulder fentanyl patch Extremities: right anterior shoulder with contusions-normal external/internal rotation, abduction/adduction-no deformity or dislocation No tenderness, no cyanosis, no clubbing, ROM intact, no edema, moving all 4 extremities Neurologic: Alert and oriented X 3, normal motor function, normal sensory function, no focal deficits noted. [] Psychologic: Affect normal, judgement normal, mood normal. [] EKG: EKG: Sinus tachycardia 105 bpm, left axis deviation, normal intervals, no T wave inversions, no ST elevations or ST depressions Radiology/Procedures: Radiology/Procedures: IMAGING REPORT Signed PATIENT: CRISTIAN GLORIA ACCOUNT: [id number] : 1940 LOCATION: ER AGE: 79 SEX: F EXAM STATUS: REG ER ORD. PHYSICIAN: QUYEN BURNS DO REASON: fall PROCEDURE: CT HEAD AND CERVICAL SPINE WO CT HEAD AND CERVICAL SPINE WO Date: 02/03/2020 7:46 AM Clinical Indication: fall, pain Comparison: 01/01/2020. Technique: 5 mm axial tomographic images were obtained of the head without contrast. These were viewed on brain and bone windows. Noncontrast CT of the cervical spine was performed. Sagittal and coronal reformats were performed and evaluated. One or more of the following dose reduction techniques were utilized: Automated exposure control (AEC), Adjustment of mA and/or kV according to patient size, Use of iterative reconstruction technique such as ASiR, CT scan done according to ALARA and image gently/image wisely HEAD FINDINGS: Mild generalized cerebral and cerebellar volume loss. Extensive nonspecific periventricular hypoattenuation, most commonly seen with chronic small vessel ischemic disease. No intra- or extra-axial mass or fluid collection. No acute hemorrhage. The ventricles are normal in size, shape, and morphology. The shahid-white matter junction is normal. The basilar cisterns are patent. The visualized paranasal sinuses are normal. The visualized portions of the orbits and globes are normal. The mastoid air cells are clear. No aggressive osseous lesion or fracture. CERVICAL SPINE FINDINGS: Reversal of the cervical lordosis centered at C5-6. No acute fracture. No aggressive lytic or blastic osseous lesions. Multilevel degenerative disc space height loss, worst and severe at C5-6 and C6-7. Multilevel mild and moderate spinal canal stenosis secondary to disc protrusions and marginal osteophytes. Multilevel mild and moderate neuroforaminal narrowing secondary to uncovertebral arthrosis. Multilevel mild and moderate facet arthrosis. 1.2 cm right thyroid nodule, not requiring further evaluation based on size criteria. No cervical lymphadenopathy. Bilateral carotid atherosclerosis. The visualized aerodigestive tract is normal. Biapical subpleural fibrosis. IMPRESSION: 1. No acute intracranial process. Large right posterior scalp hematoma. 2. No acute cervical spine fracture. Electronically signed by: Gerson Davila MD (02/03/2020 9:11 AM) [id number] DICTATED AND SIGNED BY: GERSON DAVILA MD DATE: 02/03/20910 CC: MAYTE SILVERMAN MD; QUYEN BURNS DO ~ IMAGING REPORT Signed PATIENT: CRISTIAN GLORIA ACCOUNT: [id number] : 1940 LOCATION: ER AGE: 79 SEX: F EXAM STATUS: REG ER ORD. PHYSICIAN: QUYEN BURNS DO REASON: fall PROCEDURE: PORTABLE CHEST 1V Examination: Single frontal view of the chest, frontal view of the pelvis, 2 views of the right shoulder HISTORY: History of fall COMPARISON: None available. Findings: The cardiac silhouette is unremarkable. Obscuration of the right CP angle likely trace pleural effusion.. Minimal prominent bilateral interstitial lung markings. The bilateral femoral heads within the acetabulum. Moderate joint space loss identified in the bilateral hip joint likely degenerative changes. Moderate degenerative changes identified in the lower lumbar spine. The humerus head is within the glenoid. Mild joint space loss identified in the glenohumeral joint, interphalangeal joint likely degenerative changes IMPRESSION: 1. No acute osseous findings. 2. Trace right pleural effusion with mild prominent appearing bilateral interstitial lung markings likely mild congestive changes. Electronically signed by: Jaswinder Gonzalez MD (02/03/2020 9:07 AM) [id number] Indication: Right parietal scalp hematoma with stellate 2x2cm laceration Procedure: The patient was placed in the appropriate position. The area was then CLEANSED W/ns. The laceration was closed with 4 dimitri -there was an arteriole bleeding that did not resolve w/figure 8 stitch, but hemostasis after dimitri and direct pressure. The wound area was then dressed with pressure dressings. Total repaired wound length: 2cm . The patient tolerated the procedure . Complications: none. Impressions: I performed an initial exam and determined that the Nexus C-spine criteria are negative: There is no post midline tenderness, the patient is not intoxicated, there is a normal level of alertness, there are no focal neurologic deficits and there are no distracting injuries. Therefore the c-collar has been removed. Course & Med Decision Making: Course & Med Decision Making Pertinent Labs and Imaging studies reviewed. (See chart for details) Concern for accidental mechanical fall with scalp hematoma and laceration, staple removal in 7-10 days, wound care instructions given. Cr 1.2, prior was 1.4. Non specific wbc 12.3. CXR with trace pleural effusion, possible mild congestive changes. Pt not clinically fluid overloaded (no jvd, le edema, abdominal fluid wave or orthopnea). Pt with daughter who states she was recently on multiple antibiotics for UTI with confusion at [facility]. Will follow w/NH doc to repeat UA. Encouraged urgent outpatient follow-up with PMD. Life-threatening processes were considered but are low suspicion at this time, given history and physical exam. All patient's questions were answered and pt was stable at time of discharge. Differential includes intracranial hemorrhage, diffuse axonal injury, spinal cord syndrome, unstable cervical fracture or SCIWORA, fractures or joint dislocations, neurovascular injuries, organ injury laceration, pneumothorax, pneumoperitoneum, pericardial tamponade, unstable pelvic fracture, compartment syndrome, flail chest or respiratory distress, burn injury or asphyxiation I spoken with the patient and her caregivers. I explained the patient's condition, diagnoses and treatment plan based on the information available to me at this time. I have answered the patient and her caregiver's questions and addressed any concerns. The patient and her caregivers have a good understanding of patient's diagnosis, condition and treatment plan as can be expected at this point. Vital signs have been stable. Patient's condition is stable and appropriate for discharge from the emergency department. Patient will pursue further outpatient evaluation with primary care physician or other designated or consulting physician as outlined in the discharge in structions. The patient and/or caregivers are agreeable to this plan of care and follow-up instructions have been explained in detail. The patient and/or caregivers have received these instructions in written form and have expressed an understanding of the discharge instructions. The patient and/or caregivers are aware that any significant change of condition or worsening of symptoms should prompt immediate return to this or the closest emergency department or call to 911. Dragon Disclaimer: Dragon Disclaimer: This electronic medical record was generated, in whole or in part, using a voice recognition dictation system. Departure Departure: Impression: Primary Impression: Fall Additional Impressions: Hematoma of right parietal scalp Laceration of head Disposition: 01 HOME/RESIDENCE PRIOR TO ADM Condition: STABLE Referrals: MAYTE SILVERMAN MD (PCP) Patient Instructions: Fall Prevention and Home Safety, Scalp Hematoma, Staple Care and Removal Justification of Admission: Justification of Admission: Justification of Admission Dx: N/A QUYEN BURNS DO Feb 03, 2020 07:50
[2020-02-03] MEDS: ACETAMINOPHEN 500 MG TABLET PO ONE (08:11)
[2020-02-03 08:12] LABS: BASO # 0.1 x10^3/uL (0.0-0.2); BASO % 1 % (0-3); EOS # 0.4 x10^3/uL (0.0-0.7); EOS % 3 % (0-3); HEMATOCRIT 31.7 % (36.0-47.0); HEMOGLOBIN 10.3 g/dL (12.0-15.5); LYMPH # 2.3 x10^3/uL (1.0-4.8); LYMPH % 19 % (24-48); MEAN CORPUSCULAR HEMOGLOBIN 30 pg (25-35); MEAN CORPUSCULAR HGB CONC 33 g/dL (31-37); MEAN CORPUSCULAR VOLUME 91 fL (79-100); MONO % 8 % (0-9); NEUT # 8.6 x10^3uL (1.8-7.7); NEUT % 69 % (31-73); PLATELET COUNT 505 x10^3/uL (140-400); RED CELL DISTRIBUTION WIDTH 14.7 % (11.5-14.5); WHITE BLOOD COUNT 12.3 x10^3/uL (4.0-11.0)
[2020-02-03 08:18] LABS: CALCIUM 8.9 mg/dL (8.5-10.1); CREATININE 1.2 mg/dL (0.6-1.0); GFR 43.6; POTASSIUM 4.3 mmol/L (3.5-5.1)
[2020-02-03 08:24] LABS: ALBUMIN 2.6 g/dL (3.4-5.0); DIRECT BILIRUBIN 0.2 mg/dL (0.0-0.2); TOTAL BILIRUBIN 0.4 mg/dL (0.2-1.0); TOTAL PROTEIN 6.8 g/dL (6.4-8.2)
--- NOTE | 2020-02-03 09:10 | RAD ---
Examination: Single frontal view of the chest, frontal view of the pelvis, 2 views of the right shoulder HISTORY: History of fall COMPARISON: None available. Findings: The cardiac silhouette is unremarkable. Obscuration of the right CP angle likely trace pleural effusion.. Minimal prominent bilateral interstitial lung markings. The bilateral femoral heads within the acetabulum. Moderate joint space loss identified in the bilateral hip joint likely degenerative changes. Moderate degenerative changes identified in the lower lumbar spine. The humerus head is within the glenoid. Mild joint space loss identified in the glenohumeral joint, interphalangeal joint likely degenerative changes IMPRESSION: 1. No acute osseous findings. 2. Trace right pleural effusion with mild prominent appearing bilateral interstitial lung markings likely mild congestive changes. Electronically signed by: Jaswinder Gonzalez MD (02/03/2020 9:07 AM) [id number]
--- NOTE | 2020-02-03 09:14 | RAD ---
CT HEAD AND CERVICAL SPINE WO Date: 02/03/2020 7:46 AM Clinical Indication: fall, pain Comparison: 01/01/2020. Technique: 5 mm axial tomographic images were obtained of the head without contrast. These were viewed on brain and bone windows. Noncontrast CT of the cervical spine was performed. Sagittal and coronal reformats were performed and evaluated. One or more of the following dose reduction techniques were utilized: Automated exposure control (AEC), Adjustment of mA and/or kV according to patient size, Use of iterative reconstruction technique such as ASiR, CT scan done according to ALARA and image gently/image wisely HEAD FINDINGS: Mild generalized cerebral and cerebellar volume loss. Extensive nonspecific periventricular hypoattenuation, most commonly seen with chronic small vessel ischemic disease. No intra- or extra-axial mass or fluid collection. No acute hemorrhage. The ventricles are normal in size, shape, and morphology. The shahid-white matter junction is normal. The basilar cisterns are patent. The visualized paranasal sinuses are normal. The visualized portions of the orbits and globes are normal. The mastoid air cells are clear. No aggressive osseous lesion or fracture. CERVICAL SPINE FINDINGS: Reversal of the cervical lordosis centered at C5-6. No acute fracture. No aggressive lytic or blastic osseous lesions. Multilevel degenerative disc space height loss, worst and severe at C5-6 and C6-7. Multilevel mild and moderate spinal canal stenosis secondary to disc protrusions and marginal osteophytes. Multilevel mild and moderate neuroforaminal narrowing secondary to uncovertebral arthrosis. Multilevel mild and moderate facet arthrosis. 1.2 cm right thyroid nodule, not requiring further evaluation based on size criteria. No cervical lymphadenopathy. Bilateral carotid atherosclerosis. The visualized aerodigestive tract is normal. Biapical subpleural fibrosis. IMPRESSION: 1. No acute intracranial process. Large right posterior scalp hematoma. 2. No acute cervical spine fracture. Electronically signed by: Giancarlo Davila MD (02/03/2020 9:11 AM) [id number]
[2020-02-03] MEDS: MORPHINE SULFATE 4 MG/ML DISP.SYRIN. IV ONE (09:41)
--- NOTE | 2020-02-03 14:09 | EKG ---
[address] [address] Test Date: 2020-02-03 Test Time: 07:52:53 Pat Name: CRISTIAN GLORIA Department: Room: Gender: F Well Puller Head: : 1940 Requested By: QUYEN BURNS Order Number: [id number] Reading MD: Measurements Intervals [place] Rate: 105 P: 39 AL: 176 QRS: -38 QRSD: 80 T: 48 QT: 328 QTc: 437 Interpretive Statements SINUS TACHYCARDIA ABNORMAL LEFT AXIS DEVIATION LEFT ANTERIOR FASCICULAR BLOCK QRS(T) CONTOUR ABNORMALITY CONSIDER ANTEROSEPTAL MYOCARDIAL DAMAGE ABNORMAL ECG RI6.02 No previous ECG available for comparison
== END 2020-02-03 10:51 | disposition home or self-care (01) ==
LOC: ER 07:43
DX: S01.01XA Laceration without foreign body of scalp, initial encounter (principal); S40.011A Contusion of right shoulder, initial encounter; M19.90 Unspecified osteoarthritis, unspecified site; J44.9 Chronic obstructive pulmonary disease, unspecified; F03.90 Unspecified dementia, unspecified severity, without behavioral disturbance, psychotic disturbance, mood disturbance, and anxiety; Z86.718 Personal history of other venous thrombosis and embolism; I10 Essential (primary) hypertension; K58.9 Irritable bowel syndrome, unspecified; F17.210 Nicotine dependence, cigarettes, uncomplicated; Z88.0 Allergy status to penicillin; Z88.2 Allergy status to sulfonamides; Z88.1 Allergy status to other antibiotic agents; Z91.81 History of falling; W18.39XA Other fall on same level, initial encounter; Y93.89 Activity, other specified; Y92.89 Other specified places as the place of occurrence of the external cause; Y99.8 Other external cause status
CPT/HCPCS: 12001; 36415; 70450; 71045; 72125; 72170; 73030; 80048; 80076; 82550; 84484; 85025; 93005; 96374; 99285; J2270